=== PATIENT | male | born 1940 | race African-American/Black ===

== ENCOUNTER → 2016-12-24 | Outpatient (CLI) | payer MEDICARE, OTHER ==
[~2016-12-24] MED LIST: ASPI-556 PO; ATOR40TA28 PO; B CO1CAP4 PO; BUME1TAB30 PO; GLIP10 PO; HYDR25 PO; INSU100V12 SQ; RANO500T3 PO
[2016-12-24 15:51] LABS: BASOPHILS % (AUTO) 0.9 % (0.0-2.0); EOSINOPHILS % (AUTO) 2.2 % (1.0-6.0); HEMATOCRIT 33.8 % (41-53); HEMOGLOBIN 10.8 g/dL (13.5-17.5); LYMPHOCYTES # (AUTO) 2.4 K/uL (1.0-4.8); LYMPHOCYTES % (AUTO) 39.8 % (22.0-44.0); MEAN CORPUSCULAR HEMOGLOBIN 28.2 pg (26.0-34.0); MEAN CORPUSCULAR HGB CONC 31.9 G/dL (31.0-37.0); MEAN CORPUSCULAR VOLUME 88 fL (80-100); MONOCYTES # (AUTO) 0.4 K/uL (0.1-1.0); MONOCYTES % (AUTO) 6.4 % (2.0-9.0); NEUTROPHILS # (AUTO) 3.1 K/uL (1.8-7.7); NEUTROPHILS % (AUTO) 50.7 % (40.0-70.0); PLATELET COUNT (AUTO) 224 K/uL (150-450); RED BLOOD CELL COUNT(AUTO) 3.82 MIL/uL (4.50-5.90); RED CELL DISTRIBUTION WIDTH 18.4 % (11.5-14.5); WHITE BLOOD COUNT (AUTO) 6.1 K/uL (4.5-11.0)
[2016-12-24 16:09] LABS: RBC MORPHOLOGY COMMENT ABNORMAL RBC MORPH
[2016-12-24 16:47] LABS: CALCIUM, TOTAL 9.4 mg/dL (8.8-10.5); CREATININE 2.66 mg/dL (0.60-1.30); POTASSIUM 4.1 mmol/L (3.5-5.1)
[2016-12-24 16:49] LABS: BILIRUBIN,DIRECT 0.1 mg/dL (0.00-0.20)
[2016-12-24 17:01] LABS: BILIRUBIN,TOTAL 0.3 mg/dL (0.1-1.0)
[2016-12-25 12:07] LABS: VITAMIN B12 LEVEL 402 pg/mL (211-911)
== END | disposition home or self-care (01) ==
LOC: LABPV 14:27
PROVIDERS: ATTEND Internal Medicine Nephrology
DX: N18.3 Chronic kidney disease, stage 3 (moderate) (principal); E11.9 Type 2 diabetes mellitus without complications
CPT/HCPCS: 82247; 82248; 82607; 82728; 82746; 84460; 84466

== ENCOUNTER → 2017-08-03 | Outpatient (CLI) | payer MEDICARE, OTHER ==
[~2017-08-03] MED LIST changes: +BUME1TAB17 PO; -BUME1TAB30 PO; -HYDR25 PO; +HYDR25TA84 PO
[2017-08-03 16:38] LABS: BASOPHILS % (AUTO) 0.7 % (0.0-2.0); EOSINOPHILS % (AUTO) 0.5 % (1.0-6.0); HEMATOCRIT 38.2 % (41-53); HEMOGLOBIN 12.8 g/dL (13.5-17.5); LYMPHOCYTES # (AUTO) 1.7 K/uL (1.0-4.8); LYMPHOCYTES % (AUTO) 29.2 % (22.0-44.0); MEAN CORPUSCULAR HEMOGLOBIN 30.5 pg (26.0-34.0); MEAN CORPUSCULAR HGB CONC 33.6 G/dL (31.0-37.0); MEAN CORPUSCULAR VOLUME 91 fL (80-100); MONOCYTES # (AUTO) 0.5 K/uL (0.1-1.0); MONOCYTES % (AUTO) 8.2 % (2.0-9.0); NEUTROPHILS # (AUTO) 3.6 K/uL (1.8-7.7); NEUTROPHILS % (AUTO) 61.4 % (40.0-70.0); PLATELET COUNT (AUTO) 176 K/uL (150-450); RED CELL DISTRIBUTION WIDTH 16.8 % (11.5-14.5); WHITE BLOOD COUNT (AUTO) 5.8 K/uL (4.5-11.0)
[2017-08-03 17:50] LABS: CALCIUM, TOTAL 9.2 mg/dL (8.8-10.5); CREATININE 2.56 mg/dL (0.60-1.30); POTASSIUM 4.1 mmol/L (3.5-5.1)
== END | disposition home or self-care (01) ==
LOC: LABPV 15:04
PROVIDERS: ATTEND Internal Medicine Nephrology
DX: I12.9 Hypertensive chronic kidney disease with stage 1 through stage 4 chronic kidney disease, or unspecified chronic kidney disease (principal); E11.22 Type 2 diabetes mellitus with diabetic chronic kidney disease; N18.4 Chronic kidney disease, stage 4 (severe); D64.9 Anemia, unspecified; R53.1 Weakness

== ENCOUNTER → 2017-11-11 | Outpatient (CLI) | payer MEDICARE, OTHER ==
[~2017-11-11] MED LIST changes: +ABX; +AZIT250T PO; +CARV25 PO; +CARV6 PO; +GABA-531 PO; +LISI-662 PO; +OSEL75 PO
[2017-11-11 17:08] LABS: BASOPHILS # (AUTO) 0.02 K/uL (0.00-0.20); BASOPHILS % (AUTO) 0.4 % (0.0-2.0); EOSINOPHILS # (AUTO) 0.07 K/uL (0.00-0.70); EOSINOPHILS % (AUTO) 1.25 % (1.0-6.0); HEMATOCRIT 34.2 % (41-53); HEMOGLOBIN 11.3 g/dL (13.5-17.5); LYMPHOCYTES # (AUTO) 2.1 K/uL (1.0-4.8); LYMPHOCYTES % (AUTO) 40.6 % (22.0-44.0); MEAN CORPUSCULAR HEMOGLOBIN 31.1 pg (26.0-34.0); MEAN CORPUSCULAR HGB CONC 33.1 G/dL (31.0-37.0); MEAN CORPUSCULAR VOLUME 94 fL (80-100); MONOCYTES # (AUTO) 0.7 K/uL (0.1-1.0); MONOCYTES % (AUTO) 12.9 % (2.0-9.0); NEUTROPHILS # (AUTO) 2.4 K/uL (1.8-7.7); PLATELET COUNT (AUTO) 120 K/uL (150-450); RED BLOOD CELL COUNT(AUTO) 3.64 MIL/uL (4.50-5.90); RED CELL DISTRIBUTION WIDTH 15.9 % (11.5-14.5)
[2017-11-11 17:18] LABS: CALCIUM, TOTAL 9.1 mg/dL (8.8-10.5); CREATININE 3.66 mg/dL (0.60-1.30); POTASSIUM 4.3 mmol/L (3.5-5.1)
== END | disposition home or self-care (01) ==
LOC: LABPV 14:58
PROVIDERS: ATTEND Internal Medicine Nephrology
DX: N18.3 Chronic kidney disease, stage 3 (moderate) (principal); D64.9 Anemia, unspecified; R53.1 Weakness

== ENCOUNTER 2017-11-17 15:06 | Emergency (ER) | payer MEDICARE, OTHER ==
[~2017-11-17] VITALS: Ht 177.8 cm; Wt 102.0 kg
[~2017-11-17 15:06] MED LIST changes: -ABX; -AZIT250T PO; -CARV25 PO; -CARV6 PO; -GABA-531 PO; -LISI-662 PO; -OSEL75 PO
[2017-11-17 15:28] LABS: GLUCOSE,POINT OF CARE 147 MG/DL (70-110)
[2017-11-17] MEDS ORDERED: CARV6 PO (15:37)
[2017-11-17] MEDS ORDERED: GABA-531 PO (15:37)
[2017-11-17] MEDS ORDERED: LISI-662 PO (15:37)
[2017-11-17 17:25] LABS: INFLUENZA TYPE A NEGATIVE FOR TYPE A (NEGATIVE); INFLUENZA TYPE B NEGATIVE FOR TYPE B (NEGATIVE)
[2017-11-17] MEDS ORDERED: ONDANSETRON HCL 4 MG/2 ML VIAL IVP ONE (17:30)
[2017-11-17] MEDS ORDERED: SODIUM CHLORIDE 0.9% 500 ML IV ONE (17:30)
[2017-11-17 17:37] LABS: BASOPHILS % (AUTO) 0.8 % (0.0-2.0); EOSINOPHILS % (AUTO) 0.9 % (1.0-6.0); HEMATOCRIT 37.2 % (41-53); HEMOGLOBIN 12.7 g/dL (13.5-17.5); LYMPHOCYTES # (AUTO) 1.6 K/uL (1.0-4.8); LYMPHOCYTES % (AUTO) 28.4 % (22.0-44.0); MEAN CORPUSCULAR HEMOGLOBIN 31.2 pg (26.0-34.0); MEAN CORPUSCULAR HGB CONC 34.2 G/dL (31.0-37.0); MEAN CORPUSCULAR VOLUME 91 fL (80-100); MONOCYTES # (AUTO) 0.4 K/uL (0.1-1.0); MONOCYTES % (AUTO) 6.9 % (2.0-9.0); NEUTROPHILS # (AUTO) 3.6 K/uL (1.8-7.7); PLATELET COUNT (AUTO) 174 K/uL (150-450); RED BLOOD CELL COUNT(AUTO) 4.08 MIL/uL (4.50-5.90); RED CELL DISTRIBUTION WIDTH 15.8 % (11.5-14.5)
[2017-11-17 17:47] LABS: CALCIUM, TOTAL 9.3 mg/dL (8.8-10.5); CREATININE 2.44 mg/dL (0.60-1.30); POTASSIUM 3.8 mmol/L (3.5-5.1)
[2017-11-17 17:53] LABS: ALBUMIN 3.8 g/dL (3.4-5.0); BILIRUBIN,TOTAL 0.9 mg/dL (0.1-1.0); TOTAL PROTEIN, SERUM 8.1 g/dL (6.4-8.2)
[2017-11-17] MEDS ORDERED: LISINOPRIL 10 MG TABLET PO ONE (18:30)
[2017-11-17] MEDS ORDERED: HydrALAZINE HCL 25 MG TABLET PO ONE (18:30)
[2017-11-17] MEDS ORDERED: CARVEDILOL 3.125 MG TABLET PO ONE (18:30)
[2017-11-17] MEDS ORDERED: CefTRIAXone 1 GM/DEXTROSE 50 ML IV ONE (19:30)
[2017-11-17] MEDS ORDERED: AZITHROMYCIN 500 MG/NS 250 ML IV ONE (19:30)
[2017-11-17 21:04] VITALS: BP 152/82
[2017-11-22] MEDS ORDERED: ABX (18:10)
[2017-11-25] MEDS ORDERED: AZIT250T PO (15:45)
[2017-11-25] MEDS ORDERED: OSEL75 PO (15:45)
[2017-11-25] MEDS ORDERED: CARV25 PO (15:46)
== END 2017-11-17 21:05 | disposition home or self-care (01) ==
LOC: EMS 15:08
DX: I13.0 Hypertensive heart and chronic kidney disease with heart failure and stage 1 through stage 4 chronic kidney disease, or unspecified chronic kidney disease (principal); E11.22 Type 2 diabetes mellitus with diabetic chronic kidney disease; N18.9 Chronic kidney disease, unspecified; I50.9 Heart failure, unspecified; J18.9 Pneumonia, unspecified organism; I25.2 Old myocardial infarction; I25.10 Atherosclerotic heart disease of native coronary artery without angina pectoris; E78.00 Pure hypercholesterolemia, unspecified; Z79.4 Long term (current) use of insulin; Z79.82 Long term (current) use of aspirin; Z95.0 Presence of cardiac pacemaker
CPT/HCPCS: 36415; 71046; 80053; 82962; 83605; 83880; 85025; 87040; 87804; 96361; 96365; 96367; 96375; 99285; J0456; J0696; J2405; J7040

== ENCOUNTER → 2018-04-17 | Outpatient (CLI) | payer MEDICARE, OTHER ==
[~2018-04-17] MED LIST changes: +AZIT250T PO; +CARV25 PO; +CARV6 PO; +GABA-531 PO; +LISI-662 PO; +OSEL75 PO
[2018-04-17 10:53] LABS: BASOPHILS % (AUTO) 1.3 % (0.0-2.0); HEMATOCRIT 34.6 % (41-53); HEMOGLOBIN 11.5 g/dL (13.5-17.5); LYMPHOCYTES # (AUTO) 2.8 K/uL (1.0-4.8); LYMPHOCYTES % (AUTO) 46.3 % (22.0-44.0); MEAN CORPUSCULAR HEMOGLOBIN 30.2 pg (26.0-34.0); MEAN CORPUSCULAR HGB CONC 33.2 G/dL (31.0-37.0); MEAN CORPUSCULAR VOLUME 91 fL (80-100); MONOCYTES # (AUTO) 0.5 K/uL (0.1-1.0); MONOCYTES % (AUTO) 8.4 % (2.0-9.0); NEUTROPHILS # (AUTO) 2.4 K/uL (1.8-7.7); PLATELET COUNT (AUTO) 164 K/uL (150-450); RED CELL DISTRIBUTION WIDTH 16.3 % (11.5-14.5)
[2018-04-17 12:14] LABS: CALCIUM, TOTAL 8.8 mg/dL (8.8-10.5); CREATININE 3.45 mg/dL (0.60-1.30); POTASSIUM 3.7 mmol/L (3.5-5.1)
== END | disposition home or self-care (01) ==
LOC: LABPV 10:32
PROVIDERS: ATTEND Internal Medicine Nephrology
DX: N18.3 Chronic kidney disease, stage 3 (moderate) (principal); D64.9 Anemia, unspecified; R53.1 Weakness

== ENCOUNTER 2018-05-12 18:56 | Emergency (ER) | payer MEDICARE, OTHER ==
[~2018-05-12] VITALS: Ht 180.3 cm; Wt 99.5 kg
[2018-05-12] MEDS ORDERED: GABA-531 PO (19:37)
[2018-05-12] MEDS ORDERED: FERR134T2 PO (19:37)
[2018-05-12] MEDS ORDERED: [UNRECOGNIZED DRUG - OTHER] PO (19:37)
[2018-05-12] MEDS ORDERED: ALLO300 PO (19:37)
[2018-05-12] MEDS ORDERED: ATOR40TA28 PO (19:37)
[2018-05-12] MEDS ORDERED: MULT-1297 PO (19:38)
[2018-05-12 19:59] LABS: BASOPHILS % (AUTO) 0.4 % (0.0-2.0); EOSINOPHILS % (AUTO) 1.7 % (1.0-6.0); HEMATOCRIT 35.6 % (41-53); HEMOGLOBIN 11.8 g/dL (13.5-17.5); LYMPHOCYTES # (AUTO) 1.4 K/uL (1.0-4.8); LYMPHOCYTES % (AUTO) 24.5 % (22.0-44.0); MEAN CORPUSCULAR HGB CONC 33.2 G/dL (31.0-37.0); MEAN CORPUSCULAR VOLUME 91 fL (80-100); MONOCYTES # (AUTO) 0.4 K/uL (0.1-1.0); MONOCYTES % (AUTO) 6.1 % (2.0-9.0); NEUTROPHILS # (AUTO) 3.9 K/uL (1.8-7.7); NEUTROPHILS % (AUTO) 67.3 % (40.0-70.0); PLATELET COUNT (AUTO) 185 K/uL (150-450); RED BLOOD CELL COUNT(AUTO) 3.94 MIL/uL (4.50-5.90); RED CELL DISTRIBUTION WIDTH 16.4 % (11.5-14.5)
[2018-05-12 20:09] LABS: ANION GAP 15 mmol/L (8-16); CALCIUM, TOTAL 9.5 mg/dL (8.8-10.5); CARBON DIOXIDE 23 mmol/L (22-29); CHLORIDE 101 mmol/L (98-107); CREATININE 3.29 mg/dL (0.60-1.30); GLOMERULAR FILTR. RATE CALC 22 mL/min (>60); GLUCOSE,RANDOM 66 mg/dL (70-110); POTASSIUM 3.7 mmol/L (3.5-5.1); SODIUM SERUM 139 mmol/L (136-145); UREA NITROGEN, BLOOD 48 mg/dL (7-18)
[2018-05-12 20:16] LABS: ALANINE AMINOTRANSFERASE 30 U/L (12-78); ALBUMIN 4.2 g/dL (3.4-5.0); ALKALINE PHOSPHATASE 102 U/L (46-116); ASPARTATE AMINOTRANSFERASE 18 U/L (15-37); BILIRUBIN,TOTAL 0.5 mg/dL (0.1-1.0); CREATINE KINASE, TOTAL 67 U/L (39-308); TOTAL PROTEIN, SERUM 7.9 g/dL (6.4-8.2)
[2018-05-12 20:18] LABS: PROTHROMBIN TIME 10.6 SEC (9.4-11.6)
[2018-05-12 20:34] LABS: B-TYPE NATRIURETIC PEPTIDE 253 pg/mL (0-100)
[2018-05-12 21:44] LABS: GLUCOSE,POINT OF CARE 137 MG/DL (70-110)
[2018-05-12 21:49] LABS: APPEARANCE,URINE CLEAR (CLEAR); BILIRUBIN,URINE NEGATIVE (NEGATIVE); GLUCOSE, URINE (UA) NEGATIVE (NEGATIVE); KETONES,URINE NEGATIVE (NEGATIVE); LEUKOCYTE ESTERASE ,URINE NEGATIVE (NEGATIVE); NITRATE,URINE NEGATIVE (NEGATIVE); OCCULT BLOOD,URINE NEGATIVE (NEGATIVE); PH,URINE 5.5 (5.0-8.0); PROTEIN,URINE POS 1+ (NEGATIVE); UROBILINOGEN,URINE 0.2 mg/dL (<=1.0)
[2018-05-12 22:09] LABS: BACTERIA,URINE None Seen /HPF (None Seen); RBC,URINE None Seen /HPF (0-2); SQUAMOUS EPITHELIAL CELL,UR Rare /LPF (None Seen); WBC,URINE 0-2 /HPF (0-5)
[2018-05-12 22:13] VITALS: BP 153/76
== END 2018-05-12 22:39 | disposition home or self-care (01) ==
LOC: EMS 19:00
DX: E11.649 Type 2 diabetes mellitus with hypoglycemia without coma (principal); I11.0 Hypertensive heart disease with heart failure; I50.9 Heart failure, unspecified; E78.00 Pure hypercholesterolemia, unspecified; I25.2 Old myocardial infarction; F17.210 Nicotine dependence, cigarettes, uncomplicated
CPT/HCPCS: 93005; 99285

== ENCOUNTER → 2018-05-17 | Outpatient (CLI) | payer MEDICARE, OTHER ==
[~2018-05-17] MED LIST changes: +ALLO300 PO; -AZIT250T PO; -CARV6 PO; +FERR134T2 PO; +MULT-1297 PO; -OSEL75 PO; +[UNRECOGNIZED DRUG - OTHER] PO
[2018-05-17 13:00] LABS: CREATININE 3.74 mg/dL (0.60-1.30); POTASSIUM 4.5 mmol/L (3.5-5.1)
[2018-05-17 13:02] LABS: BASOPHILS % (AUTO) 1.2 % (0.0-2.0); EOSINOPHILS % (AUTO) 6.7 % (1.0-6.0); HEMATOCRIT 31.4 % (41-53); HEMOGLOBIN 10.4 g/dL (13.5-17.5); LYMPHOCYTES % (AUTO) 35.7 % (22.0-44.0); MEAN CORPUSCULAR HEMOGLOBIN 30.4 pg (26.0-34.0); MEAN CORPUSCULAR HGB CONC 33.2 G/dL (31.0-37.0); MEAN CORPUSCULAR VOLUME 92 fL (80-100); MONOCYTES # (AUTO) 0.5 K/uL (0.1-1.0); MONOCYTES % (AUTO) 8.6 % (2.0-9.0); NEUTROPHILS # (AUTO) 2.7 K/uL (1.8-7.7); NEUTROPHILS % (AUTO) 47.8 % (40.0-70.0); PLATELET COUNT (AUTO) 167 K/uL (150-450); RED BLOOD CELL COUNT(AUTO) 3.43 MIL/uL (4.50-5.90); RED CELL DISTRIBUTION WIDTH 16.6 % (11.5-14.5)
== END | disposition home or self-care (01) ==
LOC: LABPV 11:13
PROVIDERS: ATTEND Internal Medicine Nephrology
DX: N18.4 Chronic kidney disease, stage 4 (severe) (principal); D63.1 Anemia in chronic kidney disease; R53.1 Weakness

== ENCOUNTER → 2018-10-16 | Outpatient (CLI) | payer MEDICARE, OTHER ==
[2018-10-16 12:56] LABS: CALCIUM, TOTAL 9.4 mg/dL (8.8-10.5); CREATININE 3.2 mg/dL (0.60-1.30); POTASSIUM 4.2 mmol/L (3.5-5.1)
== END | disposition home or self-care (01) ==
LOC: LABPV 10:41
PROVIDERS: ATTEND Internal Medicine Nephrology
DX: I13.0 Hypertensive heart and chronic kidney disease with heart failure and stage 1 through stage 4 chronic kidney disease, or unspecified chronic kidney disease (principal); N18.4 Chronic kidney disease, stage 4 (severe); I50.9 Heart failure, unspecified; E78.00 Pure hypercholesterolemia, unspecified

== ENCOUNTER → 2019-01-03 | Outpatient (CLI) | payer MEDICARE, OTHER ==
[2019-01-03 12:19] LABS: CALCIUM, TOTAL 8.8 mg/dL (8.8-10.5); CREATININE 3.08 mg/dL (0.60-1.30); POTASSIUM 3.5 mmol/L (3.5-5.1)
== END | disposition home or self-care (01) ==
LOC: LABPV 10:21
PROVIDERS: ATTEND Internal Medicine Nephrology
DX: I13.0 Hypertensive heart and chronic kidney disease with heart failure and stage 1 through stage 4 chronic kidney disease, or unspecified chronic kidney disease (principal); E11.22 Type 2 diabetes mellitus with diabetic chronic kidney disease; N18.4 Chronic kidney disease, stage 4 (severe); I50.9 Heart failure, unspecified

== ENCOUNTER → 2019-07-04 | Outpatient (CLI) | payer MEDICARE, OTHER ==
[~2019-07-04] MED LIST changes: -BUME1TAB17 PO; +BUME1TAB34 PO
[2019-07-04 12:30] LABS: BASOPHILS % (AUTO) 1.1 % (0.0-2.0); EOSINOPHILS % (AUTO) 2.8 % (1.0-6.0); HEMATOCRIT 36.3 % (41-53); HEMOGLOBIN 11.8 g/dL (13.5-17.5); LYMPHOCYTES # (AUTO) 1.9 K/uL (1.0-4.8); MEAN CORPUSCULAR HEMOGLOBIN 30.8 pg (26.0-34.0); MEAN CORPUSCULAR HGB CONC 32.4 G/dL (31.0-37.0); MEAN CORPUSCULAR VOLUME 95 fL (80-100); MONOCYTES # (AUTO) 0.5 K/uL (0.1-1.0); MONOCYTES % (AUTO) 11.3 % (2.0-9.0); NEUTROPHILS # (AUTO) 1.8 K/uL (1.8-7.7); NEUTROPHILS % (AUTO) 41.8 % (40.0-70.0); PLATELET COUNT (AUTO) 157 K/uL (150-450); RED BLOOD CELL COUNT(AUTO) 3.82 MIL/uL (4.50-5.90); RED CELL DISTRIBUTION WIDTH 16.7 % (11.5-14.5)
[2019-07-04 12:34] LABS: CREATININE 3.57 mg/dL (0.60-1.30); POTASSIUM 4.1 mmol/L (3.5-5.1)
== END | disposition home or self-care (01) ==
LOC: LABPV 10:25
PROVIDERS: ATTEND Internal Medicine Nephrology
DX: I12.0 Hypertensive chronic kidney disease with stage 5 chronic kidney disease or end stage renal disease (principal); E11.22 Type 2 diabetes mellitus with diabetic chronic kidney disease; N18.4 Chronic kidney disease, stage 4 (severe)

== ENCOUNTER → 2019-09-19 | Outpatient (CLI) | payer MEDICARE, OTHER ==
[2019-09-19 11:30] LABS: CALCIUM, TOTAL 9.2 mg/dL (8.8-10.5); CREATININE 3.32 mg/dL (0.60-1.30); POTASSIUM 4.5 mmol/L (3.5-5.1)
== END | disposition home or self-care (01) ==
LOC: LABPV 09:33
PROVIDERS: ATTEND Internal Medicine Nephrology
DX: E11.22 Type 2 diabetes mellitus with diabetic chronic kidney disease (principal); I13.0 Hypertensive heart and chronic kidney disease with heart failure and stage 1 through stage 4 chronic kidney disease, or unspecified chronic kidney disease; N18.3 Chronic kidney disease, stage 3 (moderate); I50.9 Heart failure, unspecified; E78.00 Pure hypercholesterolemia, unspecified; I25.2 Old myocardial infarction
CPT/HCPCS: 82043; 82570; 83036

== ENCOUNTER → 2019-10-08 | Outpatient (CLI) | payer MEDICARE, OTHER ==
[2019-10-08 13:02] LABS: CALCIUM, TOTAL 8.9 mg/dL (8.8-10.5); CREATININE 2.94 mg/dL (0.60-1.30); POTASSIUM 4.1 mmol/L (3.5-5.1)
[2019-10-08 13:08] LABS: HEMOGLOBIN A1C 5.7 % (4.5-6.2)
== END | disposition home or self-care (01) ==
LOC: LABPV 10:47
PROVIDERS: ATTEND Internal Medicine Nephrology
DX: E11.22 Type 2 diabetes mellitus with diabetic chronic kidney disease (principal); I13.0 Hypertensive heart and chronic kidney disease with heart failure and stage 1 through stage 4 chronic kidney disease, or unspecified chronic kidney disease; N18.3 Chronic kidney disease, stage 3 (moderate); I50.9 Heart failure, unspecified; E78.00 Pure hypercholesterolemia, unspecified; R80.9 Proteinuria, unspecified
CPT/HCPCS: 82043; 82570; 83036

== ENCOUNTER 2021-03-16 22:57 | Inpatient (IN) | payer MEDICARE, OTHER ==
[~2021-03-16] VITALS: Ht 172.7 cm; Wt 82.0 kg
[~2021-03-16 22:57] MED LIST changes: +ALLO-45 PO; -ALLO300 PO; +ETOMIDATE 2 MG/ML 10 ML VIAL IV ONE; +GABA-1181 PO; -GABA-531 PO; +LIDOCAINE 2% 5 ML JELLY TP ONE; -LISI-662 PO; +LISI-894 PO
[2021-03-16] MEDS ORDERED: INSULIN HUMAN NPH-REGULAR 70/30 100 UNITS/ML SQ ONE (23:04)
[2021-03-16] MEDS ORDERED: NOREPINEPHRINE 4 MG/D5%-WATER 250 ML IV ONE (23:27)
[2021-03-16] MEDS ORDERED: AMIODARONE HCL 360 MG in DEXTROSE 5%-WATER 242.8 ML IV ONE (23:30)
[2021-03-17] VITALS (8 sets, daily range): BP systolic 102–129; BP diastolic 51–88
[2021-03-17] MEDS ORDERED: PROPOFOL 1000 MG/ISO-OSM 100 ML IV ONE (00:08)
[2021-03-17] MEDS: NOREPINEPHRINE 4 MG/D5%-WATER 250 ML IV PRN ×8 (00:13→23:19)
[2021-03-17 00:18] LABS: BASOPHILS % (AUTO) 0.9 % (0.0-2.0); EOSINOPHILS % (AUTO) 2.5 % (1.0-6.0); HEMATOCRIT 32.5 % (41-53); HEMOGLOBIN 10.1 g/dL (13.5-17.5); LYMPHOCYTES # (AUTO) 6.2 K/uL (1.0-4.8); LYMPHOCYTES % (AUTO) 33.8 % (22.0-44.0); MEAN CORPUSCULAR HEMOGLOBIN 30.3 pg (26.0-34.0); MEAN CORPUSCULAR VOLUME 98 fL (80-100); MONOCYTES # (AUTO) 0.3 K/uL (0.1-1.0); MONOCYTES % (AUTO) 1.5 % (2.0-9.0); NEUTROPHILS # (AUTO) 11.3 K/uL (1.8-7.7); NEUTROPHILS % (AUTO) 61.3 % (40.0-70.0); PLATELET COUNT (AUTO) 222 K/uL (150-450); RED BLOOD CELL COUNT(AUTO) 3.32 MIL/uL (4.50-5.90); RED CELL DISTRIBUTION WIDTH 17.8 % (11.5-14.5)
[2021-03-17 00:26] LABS: ABG A-A DIFF O2 595.2 mmHg (10-20.0); ABG BASE EXCESS -8.3 mmol/L (-2.0-3.0); ABG CARBOXYHEMOGLOBIN 0.3 % (0.0-1.5); ABG HCO3 18.3 mmol/L (22.0-26.0); ABG METHEMOGLOBIN 0.2 % (0.0-1.5); ABG OXYGEN CONTENT 14.5 mL/dL (15.0-23.0); ABG OXYGEN SATURATION 94.4 % (95.0-98.0); ABG OXYHEMOGLOBIN 93.9 % (94.0-100.0); ABG PCO2 35 mmHg (35-45); ABG TOTAL HEMOGLOBIN 10.9 G/dL (12.0-18.0); PO2, ARTERIAL BG 82.4 mmHg (71.0-79.0); SOURCE, BLOOD GAS ARTERIAL; TEMPERATURE, FAHRENHEIT, BG 98.6 FAHREN (96.0-98.6)
[2021-03-17 00:27] LABS: O2 DEVICE,BLOOD GAS VENTILATOR (ROOM AIR); PEEP,BG 5 cm H2O; SITE, BLOOD GAS RT RADIAL; VENT MODE, BG SIMV (ROOM AIR); VT, ABG 450 ml
[2021-03-17 00:28] LABS: PRESSURE SUPPORT, BG 10 cm H2O
[2021-03-17 00:32] LABS: INR 1.3 (0.9-1.1)
[2021-03-17 00:38] LABS: COVID AG,FIA SOURCE NASOPHARYNGEAL
[2021-03-17 00:49] LABS: LACTIC ACID 14.1 mmol/L (0.4-2.0)
[2021-03-17 00:57] LABS: BILIRUBIN,TOTAL 0.4 mg/dL (0.1-1.0); CREATININE 7.01 mg/dL (0.60-1.30); TOTAL PROTEIN, SERUM 6.6 g/dL (6.4-8.2)
[2021-03-17 01:15] LABS: POTASSIUM 2.3 mmol/L (3.5-5.1)
[2021-03-17 01:16] LABS: CALCIUM, TOTAL 11.9 mg/dL (8.8-10.5)
[2021-03-17 01:22] LABS: APPEARANCE,URINE CLOUDY (CLEAR); BILIRUBIN,URINE PRELIM. POSITIVE (NEGATIVE); GLUCOSE, URINE (UA) >=1000 mg/dL (NEGATIVE); KETONES,URINE TRACE mg/dL (NEGATIVE); LEUKOCYTE ESTERASE ,URINE TRACE (NEGATIVE); NITRATE,URINE NEGATIVE (NEGATIVE); OCCULT BLOOD,URINE NEGATIVE (NEGATIVE); PROTEIN,URINE TRACE (NEGATIVE); UROBILINOGEN,URINE 0.2 mg/dL (<=1.0)
[2021-03-17 01:30] LABS: BACTERIA,URINE Few /HPF (None Seen); SQUAMOUS EPITHELIAL CELL,UR Rare /LPF (None Seen)
[2021-03-17] MEDS ORDERED: POTASSIUM CHL 10 MEQ/WATER 50 ML IV SCH (01:45)
[2021-03-17] MEDS: PROPOFOL 1000 MG/ISO-OSM 100 ML IV PRN ×5 (02:00→19:53)
[2021-03-17] MEDS ORDERED: POTASSIUM CHL 10 MEQ/WATER 50 ML IV ONE (02:00)
[2021-03-17] MEDS ORDERED: ASPIRIN 300 MG RECTAL SUPPOSITORY PR ONE (02:30)
[2021-03-17] MEDS ORDERED: PHENYLEPHRINE 200 MG/D5%-WATER 250 ML IV PRN (02:45)
[2021-03-17 03:29] LABS: CALCIUM, TOTAL 10.2 mg/dL (8.8-10.5); CREATININE 6.79 mg/dL (0.60-1.30)
[2021-03-17] MEDS ORDERED: VASOPRESSIN 20 UNITS/ML VIAL IVP ONE (03:30)
[2021-03-17] MEDS ORDERED: MIDAZOLAM HCL 2 MG/2 ML VIAL IVP ONE (03:30)
[2021-03-17] MEDS ORDERED: ONDANSETRON HCL 4 MG/2 ML VIAL IVP PRN (03:45)
[2021-03-17] MEDS ORDERED: MIDAZOLAM HCL 2 MG/2 ML VIAL IVP PRN (03:45)
[2021-03-17] MEDS: POTASSIUM CHL 10 MEQ/WATER 50 ML IV SCH ×7 (04:00→14:41)
[2021-03-17] MEDS ORDERED: RINGERS SOLUTION,LACTATED 500 ML IV ONE ×2 (04:00→05:30)
[2021-03-17] MEDS ORDERED: VANCOMYCIN HCL 1.5 GM in DEXTROSE 5%-WATER 250 ML IV ONE (04:00)
[2021-03-17] MEDS ORDERED: SODIUM CHLORIDE 0.9% 100 ML ONE (04:14)
[2021-03-17] MEDS ORDERED: IOHEXOL 350 MG/ML 100 ML VIAL ONE (04:14)
[2021-03-17] MEDS ORDERED: HEPARIN SODIUM 25000 UNITS/D5W 250 ML IV PRN (04:15)
[2021-03-17] MEDS ORDERED: HEPARIN SODIUM,PORCINE 5,000 UNITS/ML VIAL IVP ONE ×2 (04:15)
[2021-03-17] MEDS ORDERED: HEPARIN SODIUM,PORCINE 5,000 UNITS/ML VIAL IVP PRN ×4 (04:15→19:45)
[2021-03-17] MEDS ORDERED: VANCOMYCIN HCL 1 GM/D5% WATER 200 ML IV PRN (04:15)
[2021-03-17 04:23] LABS: ABG A-A DIFF O2 623.2 mmHg (10-20.0); ABG BASE EXCESS -11.5 mmol/L (-2.0-3.0); ABG CARBOXYHEMOGLOBIN 0.3 % (0.0-1.5); ABG HCO3 16.1 mmol/L (22.0-26.0); ABG METHEMOGLOBIN 0.3 % (0.0-1.5); ABG OXYGEN CONTENT 14.5 mL/dL (15.0-23.0); ABG OXYGEN SATURATION 90.1 % (95.0-98.0); ABG OXYHEMOGLOBIN 89.6 % (94.0-100.0); ABG PCO2 30 mmHg (35-45); ABG PH 7.307 (7.35-7.450); ABG TOTAL HEMOGLOBIN 11.5 G/dL (12.0-18.0); PO2, ARTERIAL BG 61.9 mmHg (71.0-79.0); SOURCE, BLOOD GAS ARTERIAL; TEMPERATURE, FAHRENHEIT, BG 96.8 FAHREN (96.0-98.6)
[2021-03-17 04:24] LABS: O2 DEVICE,BLOOD GAS VENTILATOR (ROOM AIR); PEEP,BG 5 cm H2O; SITE, BLOOD GAS RT RADIAL; VT, ABG 450 ml
[2021-03-17] MEDS ORDERED: ROCURONIUM BROMIDE 10 MG/ML 5 ML VIAL ONE (04:38)
[2021-03-17] MEDS: VASOPRESSIN 40 UNITS in DEXTROSE 5%-WATER 98 ML IV PRN (04:43)
[2021-03-17] MEDS: DOPamine 400MG/D5W[STANDARD] 250 ML IV PRN ×4 (05:09→19:40)
[2021-03-17 05:29] LABS: ABG A-A DIFF O2 475.8 mmHg (10-20.0); ABG BASE EXCESS -14.8 mmol/L (-2.0-3.0); ABG CARBOXYHEMOGLOBIN 0.3 % (0.0-1.5); ABG HCO3 13.7 mmol/L (22.0-26.0); ABG METHEMOGLOBIN 0.4 % (0.0-1.5); ABG OXYGEN CONTENT 15.7 mL/dL (15.0-23.0); ABG OXYHEMOGLOBIN 98.3 % (94.0-100.0); ABG PCO2 34 mmHg (35-45); ABG PH 7.203 (7.35-7.450); O2 DEVICE,BLOOD GAS VENTILATOR (ROOM AIR); PEEP,BG 10 cm H2O; PO2, ARTERIAL BG 206.1 mmHg (71.0-79.0); SITE, BLOOD GAS ARTERIAL LINE; SOURCE, BLOOD GAS ARTERIAL; TEMPERATURE, FAHRENHEIT, BG 96.2 FAHREN (96.0-98.6); VT, ABG 450 ml
[2021-03-17] MEDS ORDERED: CLINDAMYCIN 600 MG/D5% WATER 50 ML IV ONE (05:30)
[2021-03-17] MEDS ORDERED: AMIODARONE HCL 540 MG in DEXTROSE 5%-WATER 239.2 ML IV ONE (05:30)
[2021-03-17] MEDS ORDERED: SODIUM BICARBONATE [ADULT] 8.4% 50 MEQ/50 ML SYRINGE IVP ONE (05:45)
[2021-03-17] MEDS ORDERED: PIPERACILLIN SODIUM/TAZOBACTAM 2.25 GM in DEXTROSE 5%-WATER 50 ML IV SCH (06:00)
[2021-03-17 06:57] LABS: CALCIUM, TOTAL 10.4 mg/dL (8.8-10.5); CREATININE 6.85 mg/dL (0.60-1.30)
[2021-03-17 07:01] LABS: POTASSIUM 2.4 mmol/L (3.5-5.1)
[2021-03-17] MEDS ORDERED: DEXTROSE 50%-WATER 25 GM/50 ML SYRINGE IVP PRN (07:15)
[2021-03-17 07:32] LABS: ABG A-A DIFF O2 517.6 mmHg (10-20.0); ABG BASE EXCESS -16.2 mmol/L (-2.0-3.0); ABG CARBOXYHEMOGLOBIN 0.3 % (0.0-1.5); ABG HCO3 12.7 mmol/L (22.0-26.0); ABG METHEMOGLOBIN 0.5 % (0.0-1.5); ABG OXYGEN CONTENT 10.1 mL/dL (15.0-23.0); ABG OXYGEN SATURATION 98.8 % (95.0-98.0); ABG PH 7.348 (7.35-7.450); PO2, ARTERIAL BG 179.8 mmHg (71.0-79.0); SOURCE, BLOOD GAS ARTERIAL; TEMPERATURE, FAHRENHEIT, BG 97.2 FAHREN (96.0-98.6)
[2021-03-17 07:37] LABS: ABG PCO2 18 mmHg (35-45); O2 DEVICE,BLOOD GAS VENTILATOR (ROOM AIR); SITE, BLOOD GAS ARTERIAL LINE
[2021-03-17 07:38] LABS: PEEP,BG 10 cm H2O; SPONTANEOUS VT, BG 599 ml; VT, ABG 400 ml
[2021-03-17] MEDS ORDERED: EPINEPHrine 2 MG in DEXTROSE 5%-WATER 248 ML IV PRN (10:15)
[2021-03-17] MEDS: PHENYLEPHRINE 200 MG/D5%-WATER 250 ML IV PRN (10:21)
[2021-03-17] MEDS: FentaNYL CIT 1000MCG/D5%-WATER 100 ML IV PRN (11:09)
[2021-03-17] MEDS ORDERED: SODIUM CHLORIDE 0.9% 500 ML IV ONE (13:17)
[2021-03-17] MEDS: PIPERACILLIN SODIUM/TAZOBACTAM 2.25 GM in DEXTROSE 5%-WATER 50 ML IV SCH ×2 (13:44→19:52)
[2021-03-17 17:03] LABS: HEMATOCRIT 36.3 % (41-53); HEMOGLOBIN 11.4 g/dL (13.5-17.5); MEAN CORPUSCULAR HEMOGLOBIN 30.6 pg (26.0-34.0); MEAN CORPUSCULAR HGB CONC 31.4 G/dL (31.0-37.0); MEAN CORPUSCULAR VOLUME 97 fL (80-100); PLATELET COUNT (AUTO) 209 K/uL (150-450); RED BLOOD CELL COUNT(AUTO) 3.73 MIL/uL (4.50-5.90); RED CELL DISTRIBUTION WIDTH 16.9 % (11.5-14.5)
[2021-03-17 17:44] LABS: LACTIC ACID 17.8 mmol/L (0.4-2.0)
[2021-03-17] MEDS ORDERED: INSULIN GLARGINE,HUM.REC.ANLOG 100 UNITS/ML SQ ONE (18:15)
[2021-03-17] MEDS: INSULIN LISPRO 100 UNITS/ML SQ PRN (18:21)
[2021-03-17] MEDS ORDERED: B CO1CAP6 PO (18:23)
[2021-03-17] MEDS ORDERED: MEGE625O5 PO (18:23)
[2021-03-17] MEDS ORDERED: MIDO10TA PO (18:23)
[2021-03-17] MEDS ORDERED: INSU100V12 SQ (18:23)
[2021-03-17] MEDS ORDERED: ALLO100T2 PO (18:23)
[2021-03-17] MEDS ORDERED: AMLO5TAB66 PO (18:23)
[2021-03-17] MEDS ORDERED: ASPI-1444 PO (18:23)
[2021-03-17 18:28] LABS: BAND NEUTROPHILS % (MANUAL) 18 % (0-5); LYMPHOCYTES % (MANUAL) 10 % (22-44); MONOCYTES % (MANUAL) 3 % (2-9); SEGMENTED NEUTROPHILS % 69 % (40-70)
[2021-03-17 20:08] LABS: GLUCOSE,POINT OF CARE 494 MG/DL (70-110)
[2021-03-17] MEDS ORDERED: SODIUM CHLORIDE 0.9% 250 ML IV ONE (21:45)
[2021-03-17] MEDS ORDERED: AMIODARONE HCL 750 MG in DEXTROSE 5%-WATER 485 ML IV SCH (23:30)
[2021-03-18] VITALS (7 sets, daily range): BP systolic 105–145; BP diastolic 58–67
[2021-03-18] MEDS: PHENYLEPHRINE 200 MG/D5%-WATER 250 ML IV PRN (00:36)
[2021-03-18 00:51] LABS: CALCIUM, TOTAL 8.8 mg/dL (8.8-10.5); CREATININE 6.39 mg/dL (0.60-1.30)
[2021-03-18 00:55] LABS: POTASSIUM 2.3 mmol/L (3.5-5.1)
[2021-03-18] MEDS: POTASSIUM CHL 10 MEQ/WATER 50 ML IV SCH ×4 (01:40→04:37)
[2021-03-18] MEDS: FentaNYL CIT 1000MCG/D5%-WATER 100 ML IV PRN ×2 (02:32→23:30)
[2021-03-18] MEDS ORDERED: SODIUM CHLORIDE 0.9% 250 ML IV PRN (03:00)
[2021-03-18] MEDS ORDERED: PHENYLEPHRINE HCL 200 MG in SODIUM CHLORIDE 0.9% 230 ML IV PRN (03:00)
[2021-03-18] MEDS: PIPERACILLIN SODIUM/TAZOBACTAM 2.25 GM in DEXTROSE 5%-WATER 50 ML IV SCH ×2 (03:20→11:58)
[2021-03-18] MEDS ORDERED: SODIUM CHLORIDE 0.9% 100 ML ONE ×2 (03:25→09:52)
[2021-03-18] MEDS: NOREPINEPHRINE 4 MG/D5%-WATER 250 ML IV PRN ×2 (04:36→08:58)
[2021-03-18 06:32] LABS: BASOPHILS % (AUTO) 0.4 % (0.0-2.0); EOSINOPHILS % (AUTO) 0.2 % (1.0-6.0); HEMATOCRIT 34.7 % (41-53); HEMOGLOBIN 11.4 g/dL (13.5-17.5); LYMPHOCYTES # (AUTO) 1.7 K/uL (1.0-4.8); MEAN CORPUSCULAR HEMOGLOBIN 30.8 pg (26.0-34.0); MEAN CORPUSCULAR HGB CONC 32.7 G/dL (31.0-37.0); MEAN CORPUSCULAR VOLUME 94 fL (80-100); MONOCYTES # (AUTO) 0.3 K/uL (0.1-1.0); MONOCYTES % (AUTO) 1.7 % (2.0-9.0); NEUTROPHILS # (AUTO) 16.7 K/uL (1.8-7.7); PLATELET COUNT (AUTO) 189 K/uL (150-450); RED BLOOD CELL COUNT(AUTO) 3.69 MIL/uL (4.50-5.90)
[2021-03-18 06:50] LABS: CALCIUM, TOTAL 8.5 mg/dL (8.8-10.5); CREATININE 5.88 mg/dL (0.60-1.30)
[2021-03-18] MEDS: PROPOFOL 1000 MG/ISO-OSM 100 ML IV PRN ×3 (06:51→21:36)
[2021-03-18 06:52] LABS: NEUTROPHILS % (AUTO) 88.7 % (40.0-70.0)
[2021-03-18 06:55] LABS: POTASSIUM 2.5 mmol/L (3.5-5.1)
[2021-03-18] MEDS ORDERED: HEPARIN SODIUM,PORCINE 1,000 UNITS/ML VIAL ONE (08:39)
[2021-03-18] MEDS ORDERED: IOHEXOL 350 MG/ML 150 ML VIAL ONE (09:52)
[2021-03-18] MEDS ORDERED: HEPARIN SODIUM,PORCINE 1,000 UNITS/ML VIAL IVP PRN ×2 (10:30)
[2021-03-18] MEDS ORDERED: SODIUM CHLORIDE 0.9% 2,000 ML ONE (10:57)
[2021-03-18 11:41] LABS: GLUCOSE,POINT OF CARE > 600 MG/DL (70-110)
[2021-03-18 11:42] LABS: GLUCOSE,POINT OF CARE > 600 MG/DL (70-110)
[2021-03-18] MEDS: INSULIN LISPRO 100 UNITS/ML SQ PRN ×2 (11:57→17:03)
[2021-03-18] MEDS ORDERED: VANCOMYCIN HCL 500 MG in DEXTROSE 5%-WATER 100 ML IV ONE (13:00)
[2021-03-18] MEDS ORDERED: DOPamine 400MG/D5W[STANDARD] 250 ML IV PRN (13:15)
[2021-03-18 13:25] LABS: GLUCOSE,POINT OF CARE 398 MG/DL (70-110)
[2021-03-18] MEDS ORDERED: NOREPINEPHRINE 4 MG/D5%-WATER 250 ML IV ONE (13:37)
[2021-03-18] MEDS ORDERED: DOPamine 400MG/D5W[STANDARD] 250 ML IV ONE (14:07)
[2021-03-18 16:13] LABS: ABG A-A DIFF O2 116.7 mmHg (10-20.0); ABG BASE EXCESS -1.7 mmol/L (-2.0-3.0); ABG CARBOXYHEMOGLOBIN 0.5 % (0.0-1.5); ABG HCO3 24.1 mmol/L (22.0-26.0); ABG METHEMOGLOBIN 0.3 % (0.0-1.5); ABG OXYGEN CONTENT 17.9 mL/dL (15.0-23.0); ABG OXYGEN SATURATION 98.8 % (95.0-98.0); ABG PCO2 27 mmHg (35-45); ABG PH 7.512 (7.35-7.450); ABG TOTAL HEMOGLOBIN 12.8 G/dL (12.0-18.0); PO2, ARTERIAL BG 137.3 mmHg (71.0-79.0); SOURCE, BLOOD GAS ARTERIAL; TEMPERATURE, FAHRENHEIT, BG 98.6 FAHREN (96.0-98.6)
[2021-03-18 16:14] LABS: O2 DEVICE,BLOOD GAS VENTILATOR (ROOM AIR); SITE, BLOOD GAS A-LINE
[2021-03-18 16:15] LABS: PEEP,BG 8 cm H2O; VT, ABG 450 ml
[2021-03-18] MEDS: POTASSIUM CHLORIDE 20 MEQ in NXSTAGE RFP-402 K0/CA3 5,000 ML IRRIG PRN ×2 (16:51→16:52)
[2021-03-18] MEDS: PIPERACILLIN/TAZO 3.375 GM/D5W 50 ML IV SCH (17:04)
[2021-03-18 18:24] LABS: CALCIUM, TOTAL 8.1 mg/dL (8.8-10.5); CREATININE 4.71 mg/dL (0.60-1.30)
[2021-03-18 19:40] LABS: GLUCOSE,POINT OF CARE 303 MG/DL (70-110)
[2021-03-18] MEDS: HEPARIN SODIUM 25000 UNITS/D5W 250 ML IV PRN (23:29)
[2021-03-19] VITALS: BP 120/59
[2021-03-19] MEDS: PIPERACILLIN/TAZO 3.375 GM/D5W 50 ML IV SCH ×5 (00:25→23:30)
[2021-03-19] MEDS: INSULIN LISPRO 100 UNITS/ML SQ PRN (00:59)
[2021-03-19 01:09] LABS: GLUCOSE,POINT OF CARE 162 MG/DL (70-110)
[2021-03-19] MEDS: VASOPRESSIN 40 UNITS in DEXTROSE 5%-WATER 98 ML IV PRN ×2 (03:07→18:11)
[2021-03-19 04:00] VITALS: BP 121/58
[2021-03-19] MEDS: PROPOFOL 1000 MG/ISO-OSM 100 ML IV PRN ×3 (06:20→18:00)
[2021-03-19 07:22] LABS: GLUCOSE,POINT OF CARE 122 MG/DL (70-110)
[2021-03-19 07:47] LABS: CALCIUM, TOTAL 8.7 mg/dL (8.8-10.5); CREATININE 4.12 mg/dL (0.60-1.30); POTASSIUM 4.2 mmol/L (3.5-5.1); VANCOMYCIN,RANDOM 15.9 mcg/mL (25.0-50.0)
[2021-03-19 08:00] VITALS: BP 141/66
[2021-03-19] MEDS ORDERED: SODIUM CHLORIDE 0.9% 250 ML IV ONE (08:11)
[2021-03-19] MEDS ORDERED: VANCOMYCIN HCL 750 MG in DEXTROSE 5%-WATER 250 ML IV ONE (08:15)
[2021-03-19] MEDS: FAMOTIDINE 10 MG/ML 2 ML VIAL IVP SCH (08:42)
[2021-03-19] MEDS: POTASSIUM CHLORIDE 20 MEQ in NXSTAGE RFP-402 K0/CA3 5,000 ML IRRIG PRN (10:05)
[2021-03-19 12:00] VITALS: BP 127/53
[2021-03-19] MEDS ORDERED: SODIUM CHLORIDE 0.9% 500 ML IV ONE (12:47)
[2021-03-19 16:00] VITALS: BP 141/52
[2021-03-19] MEDS: FentaNYL CIT 1000MCG/D5%-WATER 100 ML IV PRN (17:59)
[2021-03-19 20:00] VITALS: BP 123/53
[2021-03-19 20:00] LABS: GLUCOSE,POINT OF CARE 119 MG/DL (70-110)
[2021-03-19 20:16] LABS: GLUCOSE,POINT OF CARE 161 MG/DL (70-110)
[2021-03-20] VITALS: BP 135/60
[2021-03-20] MEDS: INSULIN LISPRO 100 UNITS/ML SQ PRN ×2 (00:32→11:45)
[2021-03-20] MEDS: PROPOFOL 1000 MG/ISO-OSM 100 ML IV PRN ×3 (02:24→20:15)
[2021-03-20 04:00] VITALS: BP 129/60
[2021-03-20 05:57] LABS: CALCIUM, TOTAL 8.5 mg/dL (8.8-10.5); CREATININE 3.08 mg/dL (0.60-1.30); VANCOMYCIN,RANDOM 17.6 mcg/mL (25.0-50.0)
[2021-03-20] MEDS: PIPERACILLIN/TAZO 3.375 GM/D5W 50 ML IV SCH ×4 (06:03→22:57)
[2021-03-20] MEDS: POTASSIUM CHLORIDE 20 MEQ in NXSTAGE RFP-402 K0/CA3 5,000 ML IRRIG PRN ×3 (06:04→17:00)
[2021-03-20 06:39] LABS: GLUCOSE,POINT OF CARE 171 MG/DL (70-110)
[2021-03-20 06:39] LABS: GLUCOSE,POINT OF CARE 150 MG/DL (70-110)
[2021-03-20 08:00] VITALS: BP 99/74
[2021-03-20] MEDS: FAMOTIDINE 10 MG/ML 2 ML VIAL IVP SCH (08:48)
[2021-03-20] MEDS ORDERED: VANCOMYCIN HCL 750 MG in DEXTROSE 5%-WATER 250 ML IV ONE (09:00)
[2021-03-20 12:00] VITALS: BP 135/57
[2021-03-20 15:58] LABS: MAGNESIUM 1.7 mg/dL (1.80-2.40); PHOSPHORUS 2.7 mg/dL (2.5-4.9)
[2021-03-20 16:00] VITALS: BP 130/56
[2021-03-20 17:08] LABS: GLUCOSE,POINT OF CARE 170 MG/DL (70-110)
[2021-03-20] MEDS ORDERED: MAGNESIUM SULFATE 1 GM in DEXTROSE 5%-WATER 50 ML IV ONE (17:45)
[2021-03-20] MEDS: FentaNYL CIT 1000MCG/D5%-WATER 100 ML IV PRN (17:59)
[2021-03-20 19:19] LABS: GLUCOSE,POINT OF CARE 137 MG/DL (70-110)
[2021-03-20 20:00] VITALS: BP 114/48
[2021-03-20] MEDS: ETHYL ALCOHOL 62% ANTISEPTIC NASAL INHALANT 0.6 ML AMPUL NASAL SCH (20:14)
[2021-03-20] MEDS: HEPARIN SODIUM 25000 UNITS/D5W 250 ML IV PRN (22:59)
[2021-03-21] VITALS: BP 121/50
[2021-03-21] MEDS: POTASSIUM CHLORIDE 20 MEQ in NXSTAGE RFP-402 K0/CA3 5,000 ML IRRIG PRN ×2 (01:57→14:21)
[2021-03-21 02:51] LABS: GLUCOSE,POINT OF CARE 102 MG/DL (70-110)
[2021-03-21 04:00] VITALS: BP 124/52
[2021-03-21] MEDS: PROPOFOL 1000 MG/ISO-OSM 100 ML IV PRN ×3 (04:20→20:40)
[2021-03-21] MEDS: PIPERACILLIN/TAZO 3.375 GM/D5W 50 ML IV SCH ×4 (05:36→23:18)
[2021-03-21] MEDS: INSULIN LISPRO 100 UNITS/ML SQ PRN ×3 (05:56→23:19)
[2021-03-21 06:51] LABS: CALCIUM, TOTAL 8.7 mg/dL (8.8-10.5); CREATININE 2.81 mg/dL (0.60-1.30); MAGNESIUM 1.9 mg/dL (1.80-2.40); POTASSIUM 3.7 mmol/L (3.5-5.1); VANCOMYCIN,RANDOM 19.4 mcg/mL (25.0-50.0)
[2021-03-21 07:03] LABS: BASOPHILS % (AUTO) 0.2 % (0.0-2.0); EOSINOPHILS % (AUTO) 0.4 % (1.0-6.0); HEMATOCRIT 33.4 % (41-53); HEMOGLOBIN 11.1 g/dL (13.5-17.5); LYMPHOCYTES # (AUTO) 1.7 K/uL (1.0-4.8); LYMPHOCYTES % (AUTO) 10.8 % (22.0-44.0); MEAN CORPUSCULAR HEMOGLOBIN 30.7 pg (26.0-34.0); MEAN CORPUSCULAR HGB CONC 33.2 G/dL (31.0-37.0); MEAN CORPUSCULAR VOLUME 93 fL (80-100); MONOCYTES # (AUTO) 0.5 K/uL (0.1-1.0); MONOCYTES % (AUTO) 3.4 % (2.0-9.0); NEUTROPHILS # (AUTO) 13.3 K/uL (1.8-7.7); RED BLOOD CELL COUNT(AUTO) 3.61 MIL/uL (4.50-5.90); RED CELL DISTRIBUTION WIDTH 16.3 % (11.5-14.5)
[2021-03-21 07:05] LABS: NEUTROPHILS % (AUTO) 85.2 % (40.0-70.0)
[2021-03-21 07:07] LABS: PLATELET COUNT (AUTO) 66 K/uL (150-450)
[2021-03-21 08:00] VITALS: BP 130/55
[2021-03-21] MEDS: FAMOTIDINE 10 MG/ML 2 ML VIAL IVP SCH (09:14)
[2021-03-21] MEDS: CLOPIDOGREL BISULFATE 75 MG TABLET PO SCH (09:14)
[2021-03-21] MEDS: VITAMIN B COMP/VIT C/FOLIC ACID CAPSULE PO SCH (09:14)
[2021-03-21] MEDS: ETHYL ALCOHOL 62% ANTISEPTIC NASAL INHALANT 0.6 ML AMPUL NASAL SCH ×2 (09:14→20:25)
[2021-03-21 09:35] LABS: BASOPHILS % (AUTO) 0.1 % (0.0-2.0); EOSINOPHILS % (AUTO) 0.5 % (1.0-6.0); HEMATOCRIT 33.6 % (41-53); HEMOGLOBIN 11.1 g/dL (13.5-17.5); LYMPHOCYTES # (AUTO) 1.5 K/uL (1.0-4.8); LYMPHOCYTES % (AUTO) 9.6 % (22.0-44.0); MEAN CORPUSCULAR HEMOGLOBIN 30.5 pg (26.0-34.0); MEAN CORPUSCULAR VOLUME 93 fL (80-100); MONOCYTES # (AUTO) 0.5 K/uL (0.1-1.0); MONOCYTES % (AUTO) 3.3 % (2.0-9.0); NEUTROPHILS # (AUTO) 13.8 K/uL (1.8-7.7); PLATELET COUNT (AUTO) 62 K/uL (150-450); RED BLOOD CELL COUNT(AUTO) 3.63 MIL/uL (4.50-5.90); RED CELL DISTRIBUTION WIDTH 16.9 % (11.5-14.5)
[2021-03-21 09:39] LABS: NEUTROPHILS % (AUTO) 86.5 % (40.0-70.0)
[2021-03-21] MEDS ORDERED: VANCOMYCIN HCL 500 MG in DEXTROSE 5%-WATER 100 ML IV ONE (10:00)
[2021-03-21 12:00] VITALS: BP 119/54
[2021-03-21 12:08] LABS: GLUCOSE,POINT OF CARE 141 MG/DL (70-110)
[2021-03-21] MEDS ORDERED: DEXTROSE 50%-WATER 25 GM/50 ML SYRINGE IVP ONE (14:50)
[2021-03-21] MEDS ORDERED: SODIUM BICARBONATE [ADULT] 8.4% 50 MEQ/50 ML SYRINGE IVP ONE (14:50)
[2021-03-21] MEDS ORDERED: CALCIUM CHLORIDE 100 MG/ML 10 ML SYRINGE IVP ONE (14:50)
[2021-03-21] MEDS ORDERED: AMIODARONE HCL 50 MG/ML 3 ML VIAL IV ONE (14:50)
[2021-03-21] MEDS ORDERED: EPINEPHrine 1:10,000 [1 MG/10 ML] SYRINGE IVP ONE (14:50)
[2021-03-21] MEDS ORDERED: DOPamine HCL/D5W 400 MG/250 ML IV BAG IV ONE (14:50)
[2021-03-21] MEDS ORDERED: 0.9% SODIUM CHLORIDE 1,000 ML BAG IV ONE (14:50)
[2021-03-21] MEDS ORDERED: 0.9% SODIUM CHLORIDE 10 ML SYRINGE IVP ONE (14:50)
[2021-03-21 16:00] VITALS: BP 111/51
[2021-03-21 16:30] LABS: GLUCOSE,POINT OF CARE 135 MG/DL (70-110)
[2021-03-21 18:02] LABS: GLUCOSE,POINT OF CARE 142 MG/DL (70-110)
[2021-03-21] MEDS ORDERED: SODIUM CHLORIDE 0.9% 1,000 ML ONE (19:39)
[2021-03-21 20:00] VITALS: BP 132/56
[2021-03-22] VITALS: BP 117/53
[2021-03-22 01:12] LABS: GLUCOSE,POINT OF CARE 147 MG/DL (70-110)
[2021-03-22] MEDS: POTASSIUM CHLORIDE 20 MEQ in NXSTAGE RFP-402 K0/CA3 5,000 ML IRRIG PRN ×4 (01:34→21:21)
[2021-03-22] MEDS: PROPOFOL 1000 MG/ISO-OSM 100 ML IV PRN ×2 (03:50→14:00)
[2021-03-22 04:00] VITALS: BP 114/54
[2021-03-22] MEDS: PIPERACILLIN/TAZO 3.375 GM/D5W 50 ML IV SCH ×3 (05:40→17:55)
[2021-03-22 05:57] LABS: BASOPHILS % (AUTO) 0.5 % (0.0-2.0); EOSINOPHILS % (AUTO) 0.9 % (1.0-6.0); HEMATOCRIT 33.3 % (41-53); HEMOGLOBIN 11.2 g/dL (13.5-17.5); LYMPHOCYTES # (AUTO) 1.5 K/uL (1.0-4.8); LYMPHOCYTES % (AUTO) 11.4 % (22.0-44.0); MEAN CORPUSCULAR HEMOGLOBIN 31.1 pg (26.0-34.0); MEAN CORPUSCULAR HGB CONC 33.5 G/dL (31.0-37.0); MEAN CORPUSCULAR VOLUME 93 fL (80-100); MONOCYTES # (AUTO) 0.6 K/uL (0.1-1.0); MONOCYTES % (AUTO) 4.7 % (2.0-9.0); NEUTROPHILS % (AUTO) 82.5 % (40.0-70.0); PLATELET COUNT (AUTO) 50 K/uL (150-450); RED BLOOD CELL COUNT(AUTO) 3.59 MIL/uL (4.50-5.90); RED CELL DISTRIBUTION WIDTH 16.2 % (11.5-14.5)
[2021-03-22 06:17] LABS: ALBUMIN 1.6 g/dL (3.4-5.0); BILIRUBIN,TOTAL 2.5 mg/dL (0.1-1.0); CREATININE 2.45 mg/dL (0.60-1.30); MAGNESIUM 1.9 mg/dL (1.80-2.40); POTASSIUM 3.8 mmol/L (3.5-5.1); TOTAL PROTEIN, SERUM 6.7 g/dL (6.4-8.2); VANCOMYCIN,RANDOM 18.9 mcg/mL (25.0-50.0)
[2021-03-22] MEDS: VITAMIN B COMP/VIT C/FOLIC ACID CAPSULE PO SCH (07:59)
[2021-03-22] MEDS: FAMOTIDINE 10 MG/ML 2 ML VIAL IVP SCH (07:59)
[2021-03-22] MEDS: CLOPIDOGREL BISULFATE 75 MG TABLET PO SCH (07:59)
[2021-03-22] MEDS: ETHYL ALCOHOL 62% ANTISEPTIC NASAL INHALANT 0.6 ML AMPUL NASAL SCH ×2 (07:59→21:21)
[2021-03-22 08:00] VITALS: BP 89/48
[2021-03-22 09:36] LABS: GLUCOSE,POINT OF CARE 134 MG/DL (70-110)
[2021-03-22] MEDS ORDERED: VANCOMYCIN HCL 500 MG in DEXTROSE 5%-WATER 100 ML IV ONE (10:00)
[2021-03-22] MEDS: INSULIN LISPRO 100 UNITS/ML SQ PRN (11:30)
[2021-03-22 12:00] VITALS: BP 110/51
[2021-03-22 12:43] LABS: GLUCOSE,POINT OF CARE 196 MG/DL (70-110)
[2021-03-22] MEDS ORDERED: *CLINICAL-ARGATROBAN DOSING CLINICAL ONE (15:15)
[2021-03-22] MEDS ORDERED: BISACODYL 5 MG EC TABLET PO PRN (15:30)
[2021-03-22 16:00] VITALS: BP 105/50
[2021-03-22] MEDS: ARGATROBAN 250 MG in DEXTROSE 5%-WATER 247.5 ML IV PRN (16:11)
[2021-03-22] MEDS: FentaNYL CIT 1000MCG/D5%-WATER 100 ML IV PRN (16:11)
[2021-03-22 17:27] LABS: D-DIMER 20.28 mg/L FEU (0.00-0.50)
[2021-03-22] MEDS: AMINO ACIDS/PROTEIN HYDROLYS 30 ML TUBE NG SCH (17:33)
[2021-03-22] MEDS ORDERED: SODIUM CHLORIDE 0.9% 250 ML IV ONE (17:37)
[2021-03-22 18:46] LABS: GLUCOSE,POINT OF CARE 139 MG/DL (70-110)
[2021-03-22 20:00] VITALS: BP 109/54
[2021-03-23] VITALS (11 sets, daily range): BP systolic 109–172; BP diastolic 41–55
[2021-03-23] MEDS: PIPERACILLIN/TAZO 3.375 GM/D5W 50 ML IV SCH ×5 (00:07→18:49)
[2021-03-23] MEDS: INSULIN LISPRO 100 UNITS/ML SQ PRN ×3 (00:22→18:50)
[2021-03-23] MEDS: MORPHINE SULFATE 2 MG/ML SYRINGE IVP PRN ×4 (00:25→13:06)
[2021-03-23 01:00] LABS: GLUCOSE,POINT OF CARE 194 MG/DL (70-110)
[2021-03-23] MEDS ORDERED: SODIUM CHLORIDE 0.9% 1,000 ML ONE ×3 (04:28→21:30)
[2021-03-23 05:40] LABS: INR 3.1 (0.9-1.1); PROTHROMBIN TIME 30.3 SEC (9.4-11.6)
[2021-03-23] MEDS: FentaNYL CIT 1000MCG/D5%-WATER 100 ML IV PRN ×2 (05:46→15:21)
[2021-03-23] MEDS ORDERED: HEPARIN SODIUM,PORCINE 1,000 UNITS/ML VIAL ONE ×2 (07:10)
[2021-03-23] MEDS: AMINO ACIDS/PROTEIN HYDROLYS 30 ML TUBE NG SCH ×2 (08:00→18:48)
[2021-03-23 08:17] LABS: GLUCOSE,POINT OF CARE 116 MG/DL (70-110)
[2021-03-23] MEDS: FAMOTIDINE 10 MG/ML 2 ML VIAL IVP SCH (09:34)
[2021-03-23] MEDS: CLOPIDOGREL BISULFATE 75 MG TABLET PO SCH (09:35)
[2021-03-23] MEDS: VITAMIN B COMP/VIT C/FOLIC ACID CAPSULE PO SCH (09:35)
[2021-03-23] MEDS: ETHYL ALCOHOL 62% ANTISEPTIC NASAL INHALANT 0.6 ML AMPUL NASAL SCH ×2 (09:35→20:14)
[2021-03-23] MEDS ORDERED: VANCOMYCIN HCL 500 MG in DEXTROSE 5%-WATER 100 ML IV ONE (10:00)
[2021-03-23] MEDS: DEXMEDETOMIDINE HCL 200 MCG in SODIUM CHLORIDE 0.9% 48 ML IV PRN ×2 (10:46→19:52)
[2021-03-23 17:41] LABS: GLUCOSE,POINT OF CARE 278 MG/DL (70-110)
[2021-03-23] MEDS: PROPOFOL 1000 MG/ISO-OSM 100 ML IV PRN (19:45)
[2021-03-23] MEDS: HEPARIN SODIUM,PORCINE 1,000 UNITS/ML VIAL IVP PRN ×2 (20:13)
[2021-03-24] VITALS: BP 133/52
[2021-03-24] MEDS: INSULIN LISPRO 100 UNITS/ML SQ PRN ×3 (00:01→13:08)
[2021-03-24] MEDS ORDERED: SODIUM CHLORIDE 0.9% 500 ML IV ONE (02:50)
[2021-03-24] MEDS: PROPOFOL 1000 MG/ISO-OSM 100 ML IV PRN ×3 (02:54→18:03)
[2021-03-24] MEDS: POTASSIUM CHLORIDE 20 MEQ in NXSTAGE RFP-402 K0/CA3 5,000 ML IRRIG PRN ×3 (03:41→14:04)
[2021-03-24 04:00] VITALS: BP 102/46
[2021-03-24] MEDS: PIPERACILLIN/TAZO 3.375 GM/D5W 50 ML IV SCH ×4 (05:21→17:05)
[2021-03-24] MEDS: FentaNYL CIT 1000MCG/D5%-WATER 100 ML IV PRN ×2 (05:21→20:05)
[2021-03-24] MEDS: DEXMEDETOMIDINE HCL 400 MCG in SODIUM CHLORIDE 0.9% 96 ML IV PRN ×2 (05:22→20:06)
[2021-03-24 05:39] LABS: GLUCOSE,POINT OF CARE 218 MG/DL (70-110)
[2021-03-24 05:56] LABS: HEMATOCRIT 30.9 % (41-53); HEMOGLOBIN 10.1 g/dL (13.5-17.5); MEAN CORPUSCULAR HEMOGLOBIN 30.7 pg (26.0-34.0); MEAN CORPUSCULAR HGB CONC 32.8 G/dL (31.0-37.0); MEAN CORPUSCULAR VOLUME 94 fL (80-100); PLATELET COUNT (AUTO) 40 K/uL (150-450); RED CELL DISTRIBUTION WIDTH 16.8 % (11.5-14.5)
[2021-03-24 06:10] LABS: PROTHROMBIN TIME 20.1 SEC (9.4-11.6)
[2021-03-24 06:56] LABS: BAND NEUTROPHILS % (MANUAL) 1 % (0-5); BASOPHILS % (MANUAL) 1 % (0-2); EOSINOPHILS % (MANUAL) 1 % (1-6); LYMPHOCYTES % (MANUAL) 18 % (22-44); MONOCYTES % (MANUAL) 5 % (2-9); SEGMENTED NEUTROPHILS % 74 % (40-70)
[2021-03-24 08:00] VITALS: BP 155/58
[2021-03-24] MEDS ORDERED: SODIUM CHLORIDE 0.9% 250 ML IV ONE (08:01)
[2021-03-24] MEDS: CLOPIDOGREL BISULFATE 75 MG TABLET PO SCH (08:07)
[2021-03-24] MEDS: FAMOTIDINE 10 MG/ML 2 ML VIAL IVP SCH (08:08)
[2021-03-24] MEDS: AMINO ACIDS/PROTEIN HYDROLYS 30 ML TUBE NG SCH ×2 (08:08→17:05)
[2021-03-24] MEDS: ETHYL ALCOHOL 62% ANTISEPTIC NASAL INHALANT 0.6 ML AMPUL NASAL SCH ×2 (08:08→20:05)
[2021-03-24] MEDS: VITAMIN B COMP/VIT C/FOLIC ACID CAPSULE PO SCH (08:09)
[2021-03-24] MEDS: MORPHINE SULFATE 2 MG/ML SYRINGE IVP PRN (08:09)
[2021-03-24] MEDS ORDERED: VANCOMYCIN HCL 500 MG in DEXTROSE 5%-WATER 100 ML IV ONE (10:00)
[2021-03-24 11:29] LABS: ABG A-A DIFF O2 94.9 mmHg (10-20.0); ABG BASE EXCESS -4.2 mmol/L (-2.0-3.0); ABG CARBOXYHEMOGLOBIN 0.5 % (0.0-1.5); ABG HCO3 22.1 mmol/L (22.0-26.0); ABG METHEMOGLOBIN 0.3 % (0.0-1.5); ABG OXYGEN CONTENT 16.6 mL/dL (15.0-23.0); ABG OXYGEN SATURATION 98.9 % (95.0-98.0); ABG OXYHEMOGLOBIN 98.1 % (94.0-100.0); ABG PCO2 25 mmHg (35-45); ABG PH 7.504 (7.35-7.450); ABG TOTAL HEMOGLOBIN 11.9 G/dL (12.0-18.0); PO2, ARTERIAL BG 126.5 mmHg (71.0-79.0); SOURCE, BLOOD GAS ARTERIAL; TEMPERATURE, FAHRENHEIT, BG 97.6 FAHREN (96.0-98.6)
[2021-03-24 11:30] LABS: O2 DEVICE,BLOOD GAS VENTILATOR (ROOM AIR); SITE, BLOOD GAS ARTERIAL LINE
[2021-03-24 11:31] LABS: PEEP,BG 5 cm H2O; SPONTANEOUS VT, BG 441 ml
[2021-03-24 12:00] VITALS: BP 117/50
[2021-03-24 13:51] LABS: ABG A-A DIFF O2 92.5 mmHg (10-20.0); ABG CARBOXYHEMOGLOBIN 0.4 % (0.0-1.5); ABG HCO3 20.7 mmol/L (22.0-26.0); ABG METHEMOGLOBIN 0.3 % (0.0-1.5); ABG OXYGEN CONTENT 16.8 mL/dL (15.0-23.0); ABG OXYHEMOGLOBIN 98.3 % (94.0-100.0); ABG PCO2 26 mmHg (35-45); ABG PH 7.463 (7.35-7.450); PO2, ARTERIAL BG 127.9 mmHg (71.0-79.0); SITE, BLOOD GAS ARTLINE; SOURCE, BLOOD GAS ARTERIAL; TEMPERATURE, FAHRENHEIT, BG 97.6 FAHREN (96.0-98.6)
[2021-03-24 13:52] LABS: O2 DEVICE,BLOOD GAS VENTILATOR (ROOM AIR); PEEP,BG 5 cm H2O; VT, ABG 450 ml
[2021-03-24 16:00] VITALS: BP 113/51
[2021-03-24 17:17] LABS: GLUCOSE,POINT OF CARE 167 MG/DL (70-110)
[2021-03-24 17:17] LABS: GLUCOSE,POINT OF CARE 250 MG/DL (70-110)
[2021-03-24 17:17] LABS: GLUCOSE,POINT OF CARE 176 MG/DL (70-110)
[2021-03-24 20:00] VITALS: BP 109/50
[2021-03-24 22:25] LABS: GLUCOSE,POINT OF CARE 196 MG/DL (70-110)
[2021-03-25] VITALS: BP 112/45
[2021-03-25] MEDS: PIPERACILLIN/TAZO 3.375 GM/D5W 50 ML IV SCH ×4 (00:07→17:14)
[2021-03-25] MEDS: ARGATROBAN 250 MG in DEXTROSE 5%-WATER 247.5 ML IV PRN (00:08)
[2021-03-25] MEDS: PROPOFOL 1000 MG/ISO-OSM 100 ML IV PRN ×5 (00:12→23:10)
[2021-03-25] MEDS: INSULIN LISPRO 100 UNITS/ML SQ PRN ×3 (00:40→15:12)
[2021-03-25] MEDS: POTASSIUM CHLORIDE 20 MEQ in NXSTAGE RFP-402 K0/CA3 5,000 ML IRRIG PRN ×2 (02:16→02:17)
[2021-03-25 04:00] VITALS: BP 114/51
[2021-03-25 05:26] LABS: BASOPHILS % (AUTO) 0.2 % (0.0-2.0); EOSINOPHILS % (AUTO) 1.6 % (1.0-6.0); HEMATOCRIT 34.2 % (41-53); HEMOGLOBIN 11.2 g/dL (13.5-17.5); LYMPHOCYTES # (AUTO) 2.4 K/uL (1.0-4.8); LYMPHOCYTES % (AUTO) 17.2 % (22.0-44.0); MEAN CORPUSCULAR HEMOGLOBIN 30.8 pg (26.0-34.0); MEAN CORPUSCULAR HGB CONC 32.7 G/dL (31.0-37.0); MEAN CORPUSCULAR VOLUME 94 fL (80-100); MONOCYTES # (AUTO) 0.8 K/uL (0.1-1.0); MONOCYTES % (AUTO) 5.4 % (2.0-9.0); NEUTROPHILS # (AUTO) 10.5 K/uL (1.8-7.7); NEUTROPHILS % (AUTO) 75.6 % (40.0-70.0); PLATELET COUNT (AUTO) 52 K/uL (150-450); RED BLOOD CELL COUNT(AUTO) 3.63 MIL/uL (4.50-5.90); RED CELL DISTRIBUTION WIDTH 16.7 % (11.5-14.5)
[2021-03-25 05:35] LABS: CALCIUM, TOTAL 8.8 mg/dL (8.8-10.5); CREATININE 2.55 mg/dL (0.60-1.30)
[2021-03-25 05:37] LABS: INR 1.5 (0.9-1.1); PROTHROMBIN TIME 15.7 SEC (9.4-11.6)
[2021-03-25 06:21] LABS: GLUCOSE,POINT OF CARE 245 MG/DL (70-110)
[2021-03-25 06:21] LABS: GLUCOSE,POINT OF CARE 202 MG/DL (70-110)
[2021-03-25 08:00] VITALS: BP 108/50
[2021-03-25] MEDS: VASOPRESSIN 40 UNITS in DEXTROSE 5%-WATER 98 ML IV PRN (08:33)
[2021-03-25] MEDS: VITAMIN B COMP/VIT C/FOLIC ACID CAPSULE PO SCH (08:47)
[2021-03-25] MEDS: AMINO ACIDS/PROTEIN HYDROLYS 30 ML TUBE NG SCH ×2 (08:47→17:18)
[2021-03-25] MEDS: CLOPIDOGREL BISULFATE 75 MG TABLET PO SCH (08:47)
[2021-03-25] MEDS: FAMOTIDINE 10 MG/ML 2 ML VIAL IVP SCH (08:48)
[2021-03-25] MEDS: ETHYL ALCOHOL 62% ANTISEPTIC NASAL INHALANT 0.6 ML AMPUL NASAL SCH ×2 (08:48→20:29)
[2021-03-25] MEDS ORDERED: VANCOMYCIN HCL 500 MG in DEXTROSE 5%-WATER 100 ML IV ONE (10:00)
[2021-03-25 12:00] VITALS: BP 119/53
[2021-03-25] MEDS ORDERED: SODIUM CHLORIDE 0.9% 1,000 ML ONE ×2 (14:07→23:07)
[2021-03-25] MEDS ORDERED: SODIUM CHLORIDE 0.9% 2,000 ML ONE (14:25)
[2021-03-25 16:00] VITALS: BP 96/37
[2021-03-25] MEDS: HEPARIN SODIUM,PORCINE 1,000 UNITS/ML VIAL IVP PRN ×2 (16:02→16:06)
[2021-03-25] MEDS: FentaNYL CIT 1000MCG/D5%-WATER 100 ML IV PRN (16:23)
[2021-03-25] MEDS: DEXMEDETOMIDINE HCL 400 MCG in SODIUM CHLORIDE 0.9% 96 ML IV PRN (17:14)
[2021-03-25 18:44] LABS: GLUCOSE,POINT OF CARE 223 MG/DL (70-110)
[2021-03-25 18:44] LABS: GLUCOSE,POINT OF CARE 202 MG/DL (70-110)
[2021-03-25 20:00] VITALS: BP 145/49
[2021-03-26] VITALS (13 sets, daily range): BP systolic 123–173; BP diastolic 43–69
[2021-03-26] MEDS: PIPERACILLIN/TAZO 3.375 GM/D5W 50 ML IV SCH ×5 (00:07→23:58)
[2021-03-26] MEDS: VASOPRESSIN 40 UNITS in DEXTROSE 5%-WATER 98 ML IV PRN (00:10)
[2021-03-26] MEDS: INSULIN LISPRO 100 UNITS/ML SQ PRN ×4 (00:55→23:58)
[2021-03-26] MEDS: MORPHINE SULFATE 2 MG/ML SYRINGE IVP PRN ×6 (03:00→23:59)
[2021-03-26] MEDS: PROPOFOL 1000 MG/ISO-OSM 100 ML IV PRN (03:12)
[2021-03-26] MEDS: FentaNYL CIT 1000MCG/D5%-WATER 100 ML IV PRN ×2 (03:39→14:52)
[2021-03-26] MEDS: DEXMEDETOMIDINE HCL 400 MCG in SODIUM CHLORIDE 0.9% 96 ML IV PRN (03:40)
[2021-03-26] MEDS ORDERED: SODIUM CHLORIDE 0.9% 500 ML IV ONE (04:48)
[2021-03-26 05:10] LABS: BASOPHILS % (AUTO) 0.4 % (0.0-2.0); HEMATOCRIT 29.7 % (41-53); HEMOGLOBIN 9.7 g/dL (13.5-17.5); LYMPHOCYTES # (AUTO) 1.8 K/uL (1.0-4.8); LYMPHOCYTES % (AUTO) 9.6 % (22.0-44.0); MEAN CORPUSCULAR HEMOGLOBIN 31.1 pg (26.0-34.0); MEAN CORPUSCULAR HGB CONC 32.6 G/dL (31.0-37.0); MEAN CORPUSCULAR VOLUME 95 fL (80-100); MONOCYTES # (AUTO) 0.6 K/uL (0.1-1.0); MONOCYTES % (AUTO) 3.2 % (2.0-9.0); PLATELET COUNT (AUTO) 35 K/uL (150-450); RED BLOOD CELL COUNT(AUTO) 3.11 MIL/uL (4.50-5.90); RED CELL DISTRIBUTION WIDTH 16.9 % (11.5-14.5)
[2021-03-26 05:14] LABS: NEUTROPHILS % (AUTO) 85.8 % (40.0-70.0)
[2021-03-26 05:24] LABS: CALCIUM, TOTAL 8.7 mg/dL (8.8-10.5); CREATININE 2.86 mg/dL (0.60-1.30); POTASSIUM 4.2 mmol/L (3.5-5.1); VANCOMYCIN,RANDOM 20.3 mcg/mL (25.0-50.0)
[2021-03-26 06:30] LABS: GLUCOSE,POINT OF CARE 228 MG/DL (70-110)
[2021-03-26] MEDS: AMINO ACIDS/PROTEIN HYDROLYS 30 ML TUBE PO SCH ×2 (09:31→12:15)
[2021-03-26] MEDS: VITAMIN B COMP/VIT C/FOLIC ACID CAPSULE PO SCH (09:31)
[2021-03-26] MEDS: CLOPIDOGREL BISULFATE 75 MG TABLET PO SCH (09:31)
[2021-03-26] MEDS: ETHYL ALCOHOL 62% ANTISEPTIC NASAL INHALANT 0.6 ML AMPUL NASAL SCH ×2 (09:31→20:57)
[2021-03-26] MEDS: FAMOTIDINE 10 MG/ML 2 ML VIAL IVP SCH (09:31)
[2021-03-26] MEDS ORDERED: VANCOMYCIN HCL 500 MG in DEXTROSE 5%-WATER 100 ML IV ONE (10:00)
[2021-03-26] MEDS: HEPARIN SODIUM,PORCINE 1,000 UNITS/ML VIAL IVP PRN ×2 (10:29)
[2021-03-26] MEDS: ARGATROBAN 250 MG in DEXTROSE 5%-WATER 247.5 ML IV PRN (10:33)
[2021-03-26 12:26] LABS: GLUCOSE,POINT OF CARE 243 MG/DL (70-110)
[2021-03-26 12:26] LABS: GLUCOSE,POINT OF CARE 269 MG/DL (70-110)
[2021-03-26] MEDS ORDERED: SODIUM CHLORIDE 0.9% 1,000 ML ONE (14:55)
[2021-03-26 19:40] LABS: GLUCOSE,POINT OF CARE 215 MG/DL (70-110)
[2021-03-27] VITALS (14 sets, daily range): BP systolic 97–170; BP diastolic 43–58
[2021-03-27] MEDS ORDERED: SODIUM CHLORIDE 0.9% 250 ML IV ONE (00:09)
[2021-03-27] MEDS: POTASSIUM CHLORIDE 20 MEQ in NXSTAGE RFP-402 K0/CA3 5,000 ML IRRIG PRN ×5 (01:33→20:50)
[2021-03-27] MEDS: FentaNYL CIT 1000MCG/D5%-WATER 100 ML IV PRN ×2 (01:53→10:01)
[2021-03-27 03:37] LABS: GLUCOSE,POINT OF CARE 274 MG/DL (70-110)
[2021-03-27 05:06] LABS: BASOPHILS % (AUTO) 0.2 % (0.0-2.0); EOSINOPHILS % (AUTO) 0.3 % (1.0-6.0); HEMATOCRIT 28.6 % (41-53); HEMOGLOBIN 9.3 g/dL (13.5-17.5); LYMPHOCYTES # (AUTO) 1.4 K/uL (1.0-4.8); LYMPHOCYTES % (AUTO) 7.8 % (22.0-44.0); MEAN CORPUSCULAR HEMOGLOBIN 30.9 pg (26.0-34.0); MEAN CORPUSCULAR HGB CONC 32.6 G/dL (31.0-37.0); MEAN CORPUSCULAR VOLUME 95 fL (80-100); MONOCYTES # (AUTO) 0.8 K/uL (0.1-1.0); MONOCYTES % (AUTO) 4.2 % (2.0-9.0); NEUTROPHILS # (AUTO) 16.3 K/uL (1.8-7.7); PLATELET COUNT (AUTO) 60 K/uL (150-450); RED BLOOD CELL COUNT(AUTO) 3.02 MIL/uL (4.50-5.90); RED CELL DISTRIBUTION WIDTH 17.1 % (11.5-14.5)
[2021-03-27 05:31] LABS: NEUTROPHILS % (AUTO) 87.5 % (40.0-70.0)
[2021-03-27 05:42] LABS: CALCIUM, TOTAL 9.1 mg/dL (8.8-10.5); CREATININE 2.86 mg/dL (0.60-1.30); POTASSIUM 4.2 mmol/L (3.5-5.1); VANCOMYCIN,RANDOM 23.4 mcg/mL (25.0-50.0)
[2021-03-27] MEDS: INSULIN LISPRO 100 UNITS/ML SQ PRN ×3 (06:11→18:40)
[2021-03-27] MEDS: PIPERACILLIN/TAZO 3.375 GM/D5W 50 ML IV SCH ×3 (06:12→18:37)
[2021-03-27 06:28] LABS: GLUCOSE,POINT OF CARE 238 MG/DL (70-110)
[2021-03-27] MEDS: MORPHINE SULFATE 2 MG/ML SYRINGE IVP PRN ×5 (07:53→19:30)
[2021-03-27] MEDS: AMINO ACIDS/PROTEIN HYDROLYS 30 ML TUBE PO SCH ×2 (08:03→11:01)
[2021-03-27] MEDS: ETHYL ALCOHOL 62% ANTISEPTIC NASAL INHALANT 0.6 ML AMPUL NASAL SCH ×2 (08:03→20:50)
[2021-03-27] MEDS: VITAMIN B COMP/VIT C/FOLIC ACID CAPSULE PO SCH (08:03)
[2021-03-27] MEDS: FAMOTIDINE 10 MG/ML 2 ML VIAL IVP SCH (08:03)
[2021-03-27] MEDS: CLOPIDOGREL BISULFATE 75 MG TABLET PO SCH (08:03)
[2021-03-27] MEDS: ARGATROBAN 250 MG in DEXTROSE 5%-WATER 247.5 ML IV PRN (09:59)
[2021-03-27 14:05] LABS: GLUCOSE,POINT OF CARE 343 MG/DL (70-110)
[2021-03-27] MEDS: DEXMEDETOMIDINE HCL 400 MCG in SODIUM CHLORIDE 0.9% 96 ML IV PRN (15:27)
[2021-03-27 18:48] LABS: GLUCOSE,POINT OF CARE 283 MG/DL (70-110)
[2021-03-28] VITALS (7 sets, daily range): BP systolic 108–147; BP diastolic 47–56
[2021-03-28] MEDS: PIPERACILLIN/TAZO 3.375 GM/D5W 50 ML IV SCH ×4 (01:03→17:53)
[2021-03-28] MEDS: INSULIN LISPRO 100 UNITS/ML SQ PRN ×4 (01:11→17:52)
[2021-03-28 01:21] LABS: GLUCOSE,POINT OF CARE 245 MG/DL (70-110)
[2021-03-28 05:21] LABS: BASOPHILS % (AUTO) 0.6 % (0.0-2.0); EOSINOPHILS % (AUTO) 0.3 % (1.0-6.0); HEMATOCRIT 29.8 % (41-53); HEMOGLOBIN 9.6 g/dL (13.5-17.5); LYMPHOCYTES # (AUTO) 1.5 K/uL (1.0-4.8); LYMPHOCYTES % (AUTO) 8.5 % (22.0-44.0); MEAN CORPUSCULAR HEMOGLOBIN 30.5 pg (26.0-34.0); MEAN CORPUSCULAR HGB CONC 32.1 G/dL (31.0-37.0); MEAN CORPUSCULAR VOLUME 95 fL (80-100); MONOCYTES # (AUTO) 0.8 K/uL (0.1-1.0); MONOCYTES % (AUTO) 4.6 % (2.0-9.0); NEUTROPHILS # (AUTO) 15.6 K/uL (1.8-7.7); PLATELET COUNT (AUTO) 88 K/uL (150-450); RED BLOOD CELL COUNT(AUTO) 3.14 MIL/uL (4.50-5.90); RED CELL DISTRIBUTION WIDTH 17.2 % (11.5-14.5)
[2021-03-28 05:42] LABS: POTASSIUM 3.9 mmol/L (3.5-5.1)
[2021-03-28 05:45] LABS: CALCIUM, TOTAL 9.3 mg/dL (8.8-10.5); CREATININE 2.66 mg/dL (0.60-1.30)
[2021-03-28] MEDS: POTASSIUM CHLORIDE 20 MEQ in NXSTAGE RFP-402 K0/CA3 5,000 ML IRRIG PRN (06:44)
[2021-03-28 06:53] LABS: GLUCOSE,POINT OF CARE 243 MG/DL (70-110)
[2021-03-28] MEDS: VITAMIN B COMP/VIT C/FOLIC ACID CAPSULE PO SCH (08:22)
[2021-03-28] MEDS: CLOPIDOGREL BISULFATE 75 MG TABLET PO SCH (08:22)
[2021-03-28] MEDS: FAMOTIDINE 10 MG/ML 2 ML VIAL IVP SCH (08:23)
[2021-03-28] MEDS: AMINO ACIDS/PROTEIN HYDROLYS 30 ML TUBE PO SCH ×2 (08:23→12:37)
[2021-03-28] MEDS: ETHYL ALCOHOL 62% ANTISEPTIC NASAL INHALANT 0.6 ML AMPUL NASAL SCH ×2 (08:23→22:47)
[2021-03-28] MEDS: ARGATROBAN 250 MG in DEXTROSE 5%-WATER 247.5 ML IV PRN (08:26)
[2021-03-28] MEDS ORDERED: VANCOMYCIN HCL 500 MG in DEXTROSE 5%-WATER 100 ML IV ONE (09:00)
[2021-03-28] MEDS: MORPHINE SULFATE 2 MG/ML SYRINGE IVP PRN (14:36)
[2021-03-28 14:37] LABS: GLUCOSE,POINT OF CARE 294 MG/DL (70-110)
[2021-03-28] MEDS ORDERED: SODIUM CHLORIDE 0.9% 1,000 ML ONE ×2 (18:21→20:39)
[2021-03-28 18:40] LABS: GLUCOSE,POINT OF CARE 284 MG/DL (70-110)
[2021-03-28] MEDS: FentaNYL CIT 1000MCG/D5%-WATER 100 ML IV PRN (19:16)
[2021-03-29] VITALS: BP 130/46
[2021-03-29] MEDS: PIPERACILLIN/TAZO 3.375 GM/D5W 50 ML IV SCH ×4 (00:20→17:20)
[2021-03-29] MEDS: POTASSIUM CHLORIDE 20 MEQ in NXSTAGE RFP-402 K0/CA3 5,000 ML IRRIG PRN ×3 (00:20→12:09)
[2021-03-29] MEDS: INSULIN LISPRO 100 UNITS/ML SQ PRN ×4 (00:21→17:17)
[2021-03-29 04:00] VITALS: BP 92/43
[2021-03-29 04:49] LABS: GLUCOSE,POINT OF CARE 295 MG/DL (70-110)
[2021-03-29 05:49] LABS: HEMATOCRIT 31.1 % (41-53); HEMOGLOBIN 10.1 g/dL (13.5-17.5); MEAN CORPUSCULAR HEMOGLOBIN 31.3 pg (26.0-34.0); MEAN CORPUSCULAR HGB CONC 32.5 G/dL (31.0-37.0); MEAN CORPUSCULAR VOLUME 96 fL (80-100); PLATELET COUNT (AUTO) 96 K/uL (150-450); RED BLOOD CELL COUNT(AUTO) 3.23 MIL/uL (4.50-5.90); RED CELL DISTRIBUTION WIDTH 18.1 % (11.5-14.5)
[2021-03-29 05:57] LABS: CREATININE 2.64 mg/dL (0.60-1.30); POTASSIUM 3.7 mmol/L (3.5-5.1); VANCOMYCIN,RANDOM 19.3 mcg/mL (25.0-50.0)
[2021-03-29 06:13] LABS: BAND NEUTROPHILS % (MANUAL) 0 % (0-5)
[2021-03-29 06:15] LABS: CORRECTED WHITE BLOOD COUNT 22.7 K/uL (4.5-11.0); LYMPHOCYTES % (MANUAL) 6 % (22-44); MONOCYTES % (MANUAL) 5 % (2-9); SEGMENTED NEUTROPHILS % 89 % (40-70)
[2021-03-29 08:00] VITALS: BP 127/47
[2021-03-29] MEDS ORDERED: VANCOMYCIN HCL 500 MG in DEXTROSE 5%-WATER 100 ML IV ONE (08:00)
[2021-03-29] MEDS: VASOPRESSIN 40 UNITS in DEXTROSE 5%-WATER 98 ML IV PRN ×2 (08:12→21:53)
[2021-03-29] MEDS: MORPHINE SULFATE 2 MG/ML SYRINGE IVP PRN ×2 (08:12→14:51)
[2021-03-29] MEDS: VITAMIN B COMP/VIT C/FOLIC ACID CAPSULE PO SCH (08:12)
[2021-03-29] MEDS: CLOPIDOGREL BISULFATE 75 MG TABLET PO SCH (08:12)
[2021-03-29] MEDS: AMINO ACIDS/PROTEIN HYDROLYS 30 ML TUBE PO SCH ×2 (08:13→11:28)
[2021-03-29] MEDS: FAMOTIDINE 10 MG/ML 2 ML VIAL IVP SCH (08:13)
[2021-03-29] MEDS: ETHYL ALCOHOL 62% ANTISEPTIC NASAL INHALANT 0.6 ML AMPUL NASAL SCH ×2 (08:13→21:19)
[2021-03-29 09:20] LABS: GLUCOSE,POINT OF CARE 308 MG/DL (70-110)
[2021-03-29] MEDS: NOREPINEPHRINE BITARTRATE 16 MG in DEXTROSE 5%-WATER 234 ML IV PRN (11:33)
[2021-03-29 12:00] VITALS: BP 116/50
[2021-03-29 12:16] LABS: GLUCOSE,POINT OF CARE 241 MG/DL (70-110)
[2021-03-29] MEDS: FentaNYL CIT 1000MCG/D5%-WATER 100 ML IV PRN (12:32)
[2021-03-29 14:56] LABS: ABG A-A DIFF O2 153.3 mmHg (10-20.0); ABG BASE EXCESS -15.7 mmol/L (-2.0-3.0); ABG CARBOXYHEMOGLOBIN 0.2 % (0.0-1.5); ABG HCO3 13.8 mmol/L (22.0-26.0); ABG METHEMOGLOBIN 0.3 % (0.0-1.5); ABG OXYGEN CONTENT 17.2 mL/dL (15.0-23.0); ABG OXYGEN SATURATION 99.7 % (95.0-98.0); ABG OXYHEMOGLOBIN 99.2 % (94.0-100.0); ABG PCO2 22 mmHg (35-45); ABG PH 7.307 (7.35-7.450); ABG TOTAL HEMOGLOBIN 11.9 G/dL (12.0-18.0); PO2, ARTERIAL BG 252.1 mmHg (71.0-79.0); SOURCE, BLOOD GAS ARTERIAL; TEMPERATURE, FAHRENHEIT, BG 96.7 FAHREN (96.0-98.6)
[2021-03-29 14:57] LABS: O2 DEVICE,BLOOD GAS VENTILATOR (ROOM AIR); SITE, BLOOD GAS ARTERIAL LINE; VT, ABG 450 ml
[2021-03-29 14:59] LABS: PEEP,BG 5 cm H2O; SPONTANEOUS VT, BG 704 ml
[2021-03-29 16:00] VITALS: BP 93/49
[2021-03-29] MEDS ORDERED: SODIUM BICARBONATE [ADULT] 8.4% 50 MEQ/50 ML SYRINGE IVP ONE ×2 (17:53→18:00)
[2021-03-29 18:35] LABS: GLUCOSE,POINT OF CARE 164 MG/DL (70-110)
[2021-03-29 20:00] VITALS: BP 95/47
[2021-03-29] MEDS ORDERED: ACETAMINOPHEN 650 MG/20.3 ML SOLUTION UDCUP NG PRN (21:00)
[2021-03-29] MEDS: HEPARIN SODIUM,PORCINE 1,000 UNITS/ML VIAL IVP PRN ×2 (21:18→21:19)
[2021-03-29] MEDS ORDERED: HEPARIN SODIUM,PORCINE 1,000 UNITS/ML VIAL IVP PRN ×2 (21:30)
[2021-03-30] VITALS: BP 60/35
[2021-03-30] MEDS: PIPERACILLIN/TAZO 3.375 GM/D5W 50 ML IV SCH (00:26)
[2021-03-30] MEDS: NOREPINEPHRINE BITARTRATE 16 MG in DEXTROSE 5%-WATER 234 ML IV PRN (00:27)
[2021-03-30 00:52] LABS: GLUCOSE,POINT OF CARE 20 MG/DL (70-110)
[2021-03-30 00:52] LABS: GLUCOSE,POINT OF CARE 242 MG/DL (70-110)
[2021-03-30 01:53] LABS: GLUCOSE,POINT OF CARE 148 MG/DL (70-110)
[2021-03-30 02:34] LABS: GLUCOSE,POINT OF CARE 140 MG/DL (70-110)
[2021-03-30 04:00] VITALS: BP 59/38
[2021-03-30 04:54] VITALS: BP 51/30
[2021-03-30 07:01] LABS: GLUCOSE,POINT OF CARE 83 MG/DL (70-110)
== END 2021-03-30 08:45 | DRG 870 ==
LOC: EMS 22:58 → ICU 03-17 03:00
PROVIDERS: ADMIT Internal Medicine; ATTEND Internal Medicine
PROC: 5A1955Z Respiratory Ventilation, Greater than 96 Consecutive Hours (ICD-10-PCS; principal; 2021-03-17)
PROC: 0BH17EZ Insertion of Endotracheal Airway into Trachea, Via Natural or Artificial Opening (ICD-10-PCS; 2021-03-17)
PROC: 30233N1 Transfusion of Nonautologous Red Blood Cells into Peripheral Vein, Percutaneous Approach (ICD-10-PCS; 2021-03-17)
PROC: 02HV33Z Insertion of Infusion Device into Superior Vena Cava, Percutaneous Approach (ICD-10-PCS; 2021-03-17)
PROC: 5A12012 Performance of Cardiac Output, Single, Manual (ICD-10-PCS; 2021-03-17)
PROC: B54BZZA Ultrasonography of Right Lower Extremity Veins, Guidance (ICD-10-PCS; 2021-03-17)
PROC: 03HB33Z Insertion of Infusion Device into Right Radial Artery, Percutaneous Approach (ICD-10-PCS; 2021-03-17)
PROC: 4A133B1 Monitoring of Arterial Pressure, Peripheral, Percutaneous Approach (ICD-10-PCS; 2021-03-17)
PROC: 4A133J1 Monitoring of Arterial Pulse, Peripheral, Percutaneous Approach (ICD-10-PCS; 2021-03-17)
PROC: 3E1M39Z Irrigation of Peritoneal Cavity using Dialysate, Percutaneous Approach (ICD-10-PCS; 2021-03-17)
PROC: 5A1D90Z Performance of Urinary Filtration, Continuous, Greater than 18 hours Per Day (ICD-10-PCS; 2021-03-18)
PROC: 3E1M39Z Irrigation of Peritoneal Cavity using Dialysate, Percutaneous Approach (ICD-10-PCS; 2021-03-18)
PROC: 06HN33Z Insertion of Infusion Device into Left Femoral Vein, Percutaneous Approach (ICD-10-PCS; 2021-03-25)
DX: A41.9 Sepsis, unspecified organism (principal); J96.01 Acute respiratory failure with hypoxia; N18.6 End stage renal disease; I21.4 Non-ST elevation (NSTEMI) myocardial infarction; K65.9 Peritonitis, unspecified; J18.9 Pneumonia, unspecified organism; R65.21 Severe sepsis with septic shock; I13.2 Hypertensive heart and chronic kidney disease with heart failure and with stage 5 chronic kidney disease, or end stage renal disease; N17.9 Acute kidney failure, unspecified; K55.9 Vascular disorder of intestine, unspecified; E87.2 Acidosis; I82.A12 Acute embolism and thrombosis of left axillary vein; G93.1 Anoxic brain damage, not elsewhere classified; Z99.11 Dependence on respirator [ventilator] status; E87.1 Hypo-osmolality and hyponatremia; I46.9 Cardiac arrest, cause unspecified; I49.01 Ventricular fibrillation; D64.9 Anemia, unspecified; E11.22 Type 2 diabetes mellitus with diabetic chronic kidney disease; I25.2 Old myocardial infarction; I25.10 Atherosclerotic heart disease of native coronary artery without angina pectoris; E87.6 Hypokalemia; D69.6 Thrombocytopenia, unspecified; Z86.718 Personal history of other venous thrombosis and embolism; E11.40 Type 2 diabetes mellitus with diabetic neuropathy, unspecified; E79.0 Hyperuricemia without signs of inflammatory arthritis and tophaceous disease; Z79.4 Long term (current) use of insulin; Z20.822 Contact with and (suspected) exposure to COVID-19; I50.9 Heart failure, unspecified; Z86.73 Personal history of transient ischemic attack (TIA), and cerebral infarction without residual deficits; I44.7 Left bundle-branch block, unspecified; E78.00 Pure hypercholesterolemia, unspecified; Z83.3 Family history of diabetes mellitus; Z82.49 Family history of ischemic heart disease and other diseases of the circulatory system; F17.210 Nicotine dependence, cigarettes, uncomplicated; Z79.82 Long term (current) use of aspirin; Z66 Do not resuscitate; Z79.899 Other long term (current) drug therapy
CPT/HCPCS: 36430; 36600; 51702; 70450; 71045; 71260; 72193; 74160; 80048; 80053; 80202; 81001; 82550; 82805; 82962; 83605; 83735; 83880; 84100; 84132; 84260; 84484; 85018; 85025; 85379; 85384; 85610; 85730; 86022; 86850; 86900; 86901; 86923; 87040; 87070; 87081; 87205; 87340; 87426; 90945; 90947; 93005; 93306; 93971; 94002; 94003; 99291; A9575; G0378; J0171; J0282; J0690; J0883; J1265; J1644; J1815; J2250; J2270; J2370; J2543; J2704; J3370; J3475; J3480; J3490; J7030; J7040; J7050; J7060; J7120; P9016; 36415-L1; 36415-TC; 82803-TC